=== PATIENT | female | born 1960 | race Caucasian/White ===

== ENCOUNTER 2018-02-26 17:25 | Emergency (ER) | payer MEDICAID ==
--- NOTE | 2018-02-26 18:09 | ED PDOC ---
Arrival/HPI - General Time Seen by Provider: 02/26/18 18:05 Historian: Patient - History of Present Illness Narrative History of Present Illness (Text): 02/26/18 18:05 57 y/o female, pmh including htn/hyperlipidemia/dm, nkda, takes baby dose aspirin daily, last tetanus doesn't remember, c/o fall with facial laceration x 3 hours. Pt. stated that she she slipped on the wet floor, landed on the rt. sided of the facial region, sustained laceration, no LOC, able to remember the whole event, no neck pain, no numbness or tingling, no rash, no night sweat, no palpitation, no other medical or psychological complaints. Past Medical History - Provider Review Nursing Documentation Reviewed: Yes - Tetanus Immunization Tetanus Immunization: Up to Date - Psychiatric Hx Depression: No Hx Emotional Abuse: No Hx Physical Abuse: No Hx Substance Use: No - Past Surgical History Past Surgical History: No Previous - Suicidal Assessment Feels Threatened In Home Enviroment: No Family/Social History - Physician Review Nursing Documentation Reviewed: Yes Family/Social History: Unknown Family HX Hx Alcohol Use: No Hx Substance Use: No Hx Substance Use Treatment: No Allergies/Home Meds Allergies/Adverse Reactions: Allergies No Known Allergies Allergy (Verified 02/26/18 18:14) Review of Systems - Review of Systems Constitutional: absent: Fatigue, Fevers Eyes: absent: Vision Changes ENT: absent: Hearing Changes Respiratory: absent: SOB, Cough Cardiovascular: absent: Chest Pain Gastrointestinal: absent: Abdominal Pain, Nausea, Vomiting Skin: Laceration. absent: Rash, Pruritis, Abscess Neurological: absent: Headache, Dizziness Psychiatric: absent: Anxiety, Depression, Suicidal Ideation Physical Exam Vital Signs Temp Pulse Resp BP Pulse Ox 02/26/18 18:30 98.3 F 88 17 161/78 H 99 - Systems Exam Head: Present: Atraumatic, Normocephalic, Laceration (Rt. lateral periorbital region visible approx. 1.5cm superificial to intermediate depth laceration, no oozing/discharge. ). No: Ecchymosis, Abrasion Pupils: Present: PERRL Extroacular Muscles: Present: EOMI Conjunctiva: Present: Normal Mouth: Present: Moist Mucous Membranes Pharnyx: No: ERYTHEMA, EXUDATE, TONSILS ENLARGED Nose (External): Present: Atraumatic. No: Abrasion, Contusion, Laceration Nose (Internal): Present: Normal Inspection, No Active Bleeding. No: Rhinorrhea , Septal Hematoma, Epistaxis Neck: Present: Normal Range of Motion, Trachea Midline. No: MIDLINE TENDERNESS , Paraspinal Tenderness, Lymphadenopathy Respiratory/Chest: Present: Clear to Auscultation, Good Air Exchange. No: Respiratory Distress, Accessory Muscle Use Cardiovascular: Present: Regular Rate and Rhythm, Normal S1, S2. No: Murmurs Abdomen: No: Tenderness, Distention, Peritoneal Signs, Rebound, Guarding Back: Present: Normal Inspection Upper Extremity: Present: Normal Inspection. No: Cyanosis, Edema Lower Extremity: Present: Normal Inspection. No: Edema Neurological: Present: GCS=15, Speech Normal, Motor Func Grossly Intact, Gait Normal, Memory Normal Skin: Present: Warm, Dry, Normal Color. No: Rashes Psychiatric: Present: Alert, Oriented x 3, Normal Insight, Normal Concentration Medical Decision Making ED Course and Treatment: 02/26/18 18:14 -CT head/facial -tdap -will suture 02/26/18 21:24 -CT head: No evidence of acute intracranial hemorrhage, extraxial fluid or midline shift. -CT maxillofacial: Dental metallic fillings/hardware creates artifact. No acute fractures identified. Mild right facial and periorbital soft tissue swelling. -Sensation intact, motor 5/5, wound irrigated with normal saline 1000cc, clean with Betadine, sterile procedure as usual, 1% lidocaine with 0.5 mL with local infiltration, 6-0 nylon suture made 3 sutures, hemostasis obtained, bacitracin apply, gauze dressing, sensation intact, motor 5/5, minimal blood loss, pt. tolerated the procedure well with no complication. Pain decreased and pt. feel much better. Total procedure 25 minutes -Discharge home with bacitracin ointment, education on to keep the dressing and wound clean and dry for 2 days then clean with soap and water twice daily, apply Neosporin or bacitracin twice daily, keep the wound open at night starting day 3-4 as you are sleeping in a clean environment and not working which allow the wound to have proper air exposure to avoid moisture which will delayed the wound healing, sutures need to be removed by day 5, avoid strenuous exercise or activity, follow up with your own primary care doctors and specialist within 2 days, return to ER for any concerning/worsening signs or symptoms. - RAD Interpretation Radiology Orders: 02/26/18 18:15 HEAD W/O CONTRAST [CT] Stat MAXILLOFACIAL W/O CONTRAST [CT] Stat CT Head: Brain: No evidence of acute intracranial hemorrhage, extraxial fluid or midline shift. No significant white matter disease. Ventricles: Unremarkable. No ventriculomegaly. Bones/joints: Unremarkable. No acute fracture. Soft tissues: Unremarkable. Sinuses: Unremarkable as visualized. No acute sinusitis. Mastoid air cells: Unremarkable as visualized. No mastoid effusion. IMPRESSION: No evidence of acute intracranial hemorrhage, extraxial fluid or midline shift. Thank you for allowing us to participate in the care of your patient. Dictated and Authenticated by: Oz Eid MD 02/26/2018 9:13 PM Eastern Time ( & [place]) --- CT Facial: Bones/joints: No acute fractures identified. Mild cervical spondylosis. Soft tissues: Mild right facial and periorbital soft tissue swelling. Orbits: Unremarkable. Sinuses: Unremarkable. No air-fluid levels. Dental: Dental metallic fillings/hardware creates artifact. IMPRESSION: 1. Dental metallic fillings/hardware creates artifact. 2. No acute fractures identified. 3. Mild right facial and periorbital soft tissue swelling. Thank you for allowing us to participate in the care of your patient. Dictated and Authenticated by: Oz Eid MD 02/26/2018 9:16 PM Eastern Time ( & [place]) Veterinary Radiologist: Radiologist - Medication Orders Current Medication Orders: Discontinued Medications Tetanus/Reduced Diphtheria/Acell Pertussis (Boostrix Vaccine Inj) 0.5 ml IM .ONCE ONE Stop: 02/26/18 18:16 Last Admin: 02/26/18 19:26 Dose: 0.5 ml [employer] [facility] Immunization Data Document 02/26/18 19:26 IT (Rec: 02/26/18 19:26 IT [id number]) Immunization Data Vaccine Information Sheet Given No Immunization Registry Document 02/26/18 19:26 IT (Rec: 02/26/18 19:26 IT [id number]) Immunization Registry Consent Date 02/26/18 - 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 Disposition/Present on Arrival - Present on Arrival Any Indicators Present on Arrival: No History of DVT/PE: No History of Uncontrolled Diabetes: No Urinary Catheter: No History of Decub. Ulcer: No History Surgical Site Infection Following: None - Disposition Have Diagnosis and Disposition been Completed?: Yes Diagnosis: Fall, Laceration, Contusion Disposition: HOME/ ROUTINE Disposition Time: 18:15 Patient Plan: Discharge Patient Problems: Current Active Problems Problem Status Onset Fall Acute Laceration Acute Condition: IMPROVED Additional Instructions: -Discharge home with bacitracin ointment, education on to keep the dressing and wound clean and dry for 2 days then clean with soap and water twice daily, apply Neosporin or bacitracin twice daily, keep the wound open at night starting day 3-4 as you are sleeping in a clean environment and not working which allow the wound to have proper air exposure to avoid moisture which will delayed the wound healing, sutures need to be removed by day 5, avoid strenuous exercise or activity, follow up with your own primary care doctors and specialist within 2 days, return to ER for any concerning/worsening signs or symptoms. Prescriptions: Bacitracin OINT 1 applic TP BID #30 g Referrals: Phong Chappell MD [Primary Care Provider] - Follow up with primary Forms: WORK NOTE
[2018-02-26] MEDS ORDERED: TDAP Vaccine 0.5 mL Syr IM ONE (18:15)
[2018-02-26 18:19] VITALS: BMI 29.2
[2018-02-26 18:30] VITALS: RESP 17
[2018-02-26 21:39] VITALS: BP 138/68; PULSE 82; TEMP 98.2; O2SAT 100
--- NOTE | 2018-02-27 09:01 | CT ---
PROCEDURE: CT HEAD WITHOUT CONTRAST. HISTORY: fall, rt. periorbital facial laceration COMPARISON: None available. TECHNIQUE: Axial computed tomography images were obtained through the head/brain without intravenous contrast. Radiation dose: Total exam DLP = 1005 mGy-cm. This CT exam was performed using one or more of the following dose reduction techniques: Automated exposure control, adjustment of the mA and/or kV according to patient size, and/or use of iterative reconstruction technique. FINDINGS: HEMORRHAGE: No intracranial hemorrhage. BRAIN: No mass effect or edema. No atrophy or chronic microvascular ischemic changes. VENTRICLES: Unremarkable. No hydrocephalus. CALVARIUM: Unremarkable. PARANASAL SINUSES: Unremarkable as visualized. No significant inflammatory changes. MASTOID AIR CELLS: Unremarkable as visualized. No inflammatory changes. OTHER FINDINGS: The report concurs with the preliminary [facility] report IMPRESSION: No acute findings
--- NOTE | 2018-02-27 09:09 | CT ---
PROCEDURE: CT MAXILLOFACIAL BONES WITHOUT CONTRAST HISTORY: fall, rt. periorbital facial laceration COMPARISON: None TECHNIQUE: Contiguous axial CT images of the maxillofacial bones were obtained. Coronal and sagittal reformats were generated. Radiation dose: Total exam DLP = 778 mGy-cm. This CT exam was performed using one or more of the following dose reduction techniques: Automated exposure control, adjustment of the mA and/or kV according to patient size, and/or use of iterative reconstruction technique. FINDINGS: NASAL BONES: Unremarkable. ORBITS: Unremarkable. PARANASAL SINUSES/ MASTOIDS: Clear. MAXILLA: Unremarkable. MANDIBLE/ TEMPOROMANDIBULAR JOINTS: Unremarkable. SKULL BASE: Unremarkable. TEMPORAL BONES: Middle ears and mastoid grossly unremarkable. OTHER FINDINGS: Disc degeneration at C4-5 The report concurs with the preliminary [facility] report IMPRESSION: Unremarkable non contrast enhanced CT of the maxillofacial bones.
== END 2018-02-26 21:40 | disposition home or self-care (01) ==
LOC: ED 17:25
DX: S01.81XA Laceration without foreign body of other part of head, initial encounter (principal); W01.0XXA Fall on same level from slipping, tripping and stumbling without subsequent striking against object, initial encounter; Y92.009 Unspecified place in unspecified non-institutional (private) residence as the place of occurrence of the external cause; Z23 Encounter for immunization

== ENCOUNTER 2018-07-18 18:00 | Emergency (ER) | payer MEDICAID ==
[2018-07-18 18:01] VITALS: BMI 29.2
[2018-07-18 18:26] VITALS: BP 150/104; PULSE 99; RESP 18; TEMP 97.7
[2018-07-18] MEDS ORDERED: DiphenhydrAMINE 50 mg/ml Inj IVP STA (18:28)
[2018-07-18] MEDS ORDERED: Sodium Chloride 0.9% 1,000 ML IV SCH (18:30)
--- NOTE | 2018-07-18 18:33 | ED PDOC ---
Arrival/HPI - General Historian: Patient <Kamron Cornell - Last Filed: 07/18/18 21:01> <Dona Gomez PA-C - Last Filed: 07/18/18 22:28> - General Chief Complaint: Headache Time Seen by Provider: 07/18/18 18:28 - History of Present Illness Narrative History of Present Illness (Text): 07/18/18 18:30 58 y/o female, pmh including htn/hld/dm/anemia/mild alzheimer, nkda, post menopausal, c/o headache x 5 hours. Pt. stated that she has been having all afternoon started 1pm this afternoon, associated with nausea and 1 episode of non-bilious/non-bloody vomiting, checked her bp and noted to be elevated and in the BP the BP is around 150/104, no chest pain or palpitation, no rash, no night sweat, no dizziness, no change in vision, no palpitation, no rash, no other medical or psychological complaints. (Kamron Cornell) Past Medical History - Provider Review Nursing Documentation Reviewed: Yes - Infectious Disease Hx of Infectious Diseases: None - Tetanus Immunization Tetanus Immunization: Up to Date - Cardiac Hx Cardiac Disorders: Yes Hx Hypertension: Yes - Pulmonary Hx Respiratory Disorders: No - Neurological Hx Neurological Disorder: Yes Hx Dementia: Yes Other/Comment: neuropathy - HEENT Hx HEENT Disorder: No - Endocrine/Metabolic Hx Endocrine Disorders: Yes Hx Diabetes Mellitus Type 2: Yes - Hematological/Oncological Hx Blood Disorders: No - Integumentary Hx Dermatological Disorder: No - Musculoskeletal/Rheumatological Hx Musculoskeletal Disorders: No - Gastrointestinal Hx Gastrointestinal Disorders: Yes Hx Gastroesophageal Reflux: Yes - Genitourinary/Gynecological Hx Genitourinary Disorders: No - Psychiatric Hx Depression: No Hx Emotional Abuse: No Hx Physical Abuse: No Hx Substance Use: No - Past Surgical History Past Surgical History: No Previous - Suicidal Assessment Feels Threatened In Home Enviroment: No <Kamron Cornell - Last Filed: 07/18/18 21:01> Family/Social History - Physician Review Nursing Documentation Reviewed: Yes Family/Social History: Unknown Family HX Smoking Status: Never Smoked Hx Alcohol Use: No Hx Substance Use: No Hx Substance Use Treatment: No <Kamron Cornell - Last Filed: 07/18/18 21:01> Allergies/Home Meds <Kamron Cornell - Last Filed: 07/18/18 21:01> <Dona Gomez PA-C - Last Filed: 07/18/18 22:28> Allergies/Adverse Reactions: Allergies No Known Allergies Allergy (Verified 07/18/18 18:30) Review of Systems - Review of Systems Constitutional: absent: Fatigue, Fevers Eyes: absent: Vision Changes ENT: absent: Hearing Changes Respiratory: absent: SOB, Cough Cardiovascular: absent: Chest Pain Gastrointestinal: Nausea, Vomiting. absent: Abdominal Pain Genitourinary Female: absent: Dysuria Musculoskeletal: absent: Arthralgias Skin: absent: Rash, Pruritis Neurological: Headache. absent: Dizziness, Focal Weakness Psychiatric: absent: Anxiety, Depression, Suicidal Ideation <Kamron Cornell - Last Filed: 07/18/18 21:01> Physical Exam Vital Signs Reviewed: Yes Temperature: Afebrile Blood Pressure: Hypertensive Pulse: Regular Respiratory Rate: Normal Appearance: Positive for: Well-Appearing, Non-Toxic Pain Distress: Moderate Mental Status: Positive for: Alert and Oriented X 3 Finger Stick Blood Glucose: 201 - Systems Exam Head: Present: Atraumatic, Normocephalic, Other (no temporal artery tenderness). No: Tenderness, Contusion, Swelling, Ecchymosis, Abrasion, Laceration Pupils: Present: PERRL Extroacular Muscles: Present: EOMI Conjunctiva: Present: Normal Ears: Present: NORMAL TM, Normal Canal. No: Erythema Mouth: Present: Moist Mucous Membranes, Normal Lips, Normal Tounge, Normal Teeth. No: Drooling, Trismus Pharnyx: Present: Normal. No: ERYTHEMA, EXUDATE, TONSILS ENLARGED Nose (External): Present: Atraumatic. No: Abrasion, Contusion, Laceration Nose (Internal): Present: Normal Inspection, No Active Bleeding. No: Rhi norrhea, Septal Hematoma, Epistaxis Neck: Present: Normal Range of Motion, Trachea Midline. No: Meningeal Signs, MIDLINE TENDERNESS, Paraspinal Tenderness, Lymphadenopathy Respiratory/Chest: Present: Clear to Auscultation, Good Air Exchange. No: Re spiratory Distress, Accessory Muscle Use Cardiovascular: Present: Regular Rate and Rhythm, Normal S1, S2. No: Murmurs Abdomen: No: Tenderness, Distention, Peritoneal Signs, Rebound, Guarding Back: Present: Normal Inspection. No: CVA Tenderness, Midline Tenderness, Paraspinal Tenderness, Pain with Leg Raise, Decubitus Ulcer Upper Extremity: Present: Normal Inspection. No: Cyanosis, Edema Lower Extremity: Present: Normal Inspection, Normal ROM, Neurovascularly Intact, Capillary Refill < 2 s. No: Edema, Tenderness, Swelling, Deformity Neurological: Present: GCS=15, CN II-XII Intact, Speech Normal, Motor Func Grossly Intact, Gait Normal, Memory Normal, Other (no drift, NIHSS is zero) Skin: Present: Warm, Dry, Normal Color. No: Rashes Psychiatric: Present: Alert, Oriented x 3, Normal Insight, Normal Concentration <Kamron Cornell - Last Filed: 07/18/18 21:01> Vital Signs Temp Pulse Resp BP Pulse Ox 07/18/18 18:22 97.7 F 99 H 18 150/104 H 100 Medical Decision Making - RAD Interpretation Fashion Intern: Radiologist <Kamron Cornell - Last Filed: 07/18/18 21:01> <Dona Gomez PA-C - Last Filed: 07/18/18 22:28> ED Course and Treatment: 07/18/18 18:33 -Labs/ua -CT head -IVF/reglan/benadryl -Observe and reassess 07/18/18 20:57 -CT head: Normal head/brain CT. -Chest xray: no active disease -Labs are non significant except hgb 11.3 (no abdominal pain, chronic anemia), BUN 25 (pt. refused IVF, tolerating PO) -Pt. refused IV as she is not happy with the IV attempts, there is no anion gap, clinically not appear to be DKA. -Case endorsed to the incoming PRIMITIVO Gomez, discussed about the labs, she will follow up on the pending labs/radiology test including UA and dispo the patient. (Kamron Cornell) 07/18/18 22:24 UA results wnl. UA results d/w the patient. VS : BP 146/67 P 98 O2sat 100%RA. On reevaluation, patient reports improvement of symptoms, denies any headache, dizziness, CP, SOB or nausea. On exam, patient remains awake alert and oriented 3 in no acute distress. Neck is supple, repeat neuro exam shows no focal findings. Advised to follow up with primary care physician in 1-2 days without fail. Return to the emergency room at any time for any new or worsening symptoms. Patient states she fully agrees with and understands discharge instructions. States that she agrees with the plan and disposition. Verbalized and repeated discharge instructions and plan. I have given the patient opportunity to ask any additional questions. (Jason LEIVNE,Dona Coombs) - Lab Interpretations Lab Results: 07/18/18 19:01 07/18/18 19:01 Lab Results 07/18/18 20:50: Urine Color Straw, Urine Appearance Clear, Urine pH 7.0, Ur Spe cific [place] 1.010, Urine Protein Negative, Urine Glucose (UA) >=1000, Urine Ketones Trace H, Urine Blood Negative, Urine Nitrate Negative, Urine Bilirubin Negative, Urine Urobilinogen 0.2, Ur Leukocyte Esterase Negative 07/18/18 19:01: Sodium 141, Potassium 4.1, Chloride 102, Carbon Dioxide 25, Anion Gap 18, BUN 25 H, Creatinine 0.9, Est GFR ( Amer) > 60, Est GFR (Non-Af Amer) > 60, Random Glucose 211 H, Calcium 9.8, Magnesium 2.1, Total Bilirubin 0.2, AST 28, ALT 15, Alkaline Phosphatase 86, Total Protein 8.3, Albumin 4.4, Globulin 3.8, Albumin/Globulin Ratio 1.2 07/18/18 19:01: WBC 8.4, RBC 4.45, Hgb 11.3 L, Hct 35.1 L, MCV 78.9 L, MCH 25.4, MCHC 32.2, RDW 14.1, Plt Count 269, MPV 10.4, Gran % 67.7, Lymph % (Auto) 22.6, [place] % (Auto) 8.2 H, Eos % (Auto) 1.4 L, Baso % (Auto) 0.1, Gran # 5.69, Lymph # (Auto) 1.9, [place] # (Auto) 0.7 H, Eos # (Auto) 0.1, Baso # (Auto) 0.01 - RAD Interpretation Radiology Orders: 07/18/18 18:28 HEAD W/O CONTRAST [CT] Stat CHEST PORTABLE [RAD] Stat CT Head: FINDINGS: Brain: Unremarkable. No hemorrhage. No significant white matter disease. No edema. Normal holliday white matter interfaces are present. Ventricles: Unremarkable. No ventriculomegaly. Bones/joints: Unremarkable. No acute fracture. Soft tissues: Unremarkable. Sinuses: Unremarkable as visualized. No acute sinusitis. Mastoid air cells: Unremarkable as visualized. No mastoid effusion. IMPRESSION: Normal head/brain CT. Thank you for allowing us to participate in the care of your patient. Dictated and Authenticated by: Jerome Glaser MD 07/18/2018 8:58 PM Eastern Time ([place] & [place]) Chest xray: (Kamron Cornell) - Medication Orders Current Medication Orders: Discontinued Medications Acetaminophen (Tylenol 325mg Tab) 650 mg PO STAT STA Stop: 07/18/18 20:58 Last Admin: 07/18/18 21:05 Dose: 650 mg MAR Pain/Vitals Document 07/18/18 21:05 SS (Rec: 07/18/18 21:05 [id number]) Location Pain Location Body Presentation Team Member Diphenhydramine HCl (Benadryl) 50 mg IM STAT STA Stop: 07/18/18 20:58 Last Admin: 07/18/18 21:01 Dose: 50 mg IM Administration Charges Document 07/18/18 21:01 SS (Rec: 07/18/18 21:01 [id number]) Charges for Administration # of IM Administrations 1 Metoclopramide HCl (Reglan) 10 mg IM STAT STA Stop: 07/18/18 20:57 Last Admin: 07/18/18 21:01 Dose: 10 mg IM Administration Charges Document 07/18/18 21:01 SS (Rec: 07/18/18 21:01 [id number]) Charges for Administration # of IM Administrations 1 - 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 <Kamron Cornell - Last Filed: 07/18/18 21:01> - PA / HOUSE SHORER / Resident Statement MD/DO has reviewed & agrees with the documentation as recorded. <Dona Gomez PA-C - Last Filed: 07/18/18 22:28> Disposition/Present on Arrival - Present on Arrival Any Indicators Present on Arrival: No History of DVT/PE: No History of Uncontrolled Diabetes: No Urinary Catheter: No History of Decub. Ulcer: No History Surgical Site Infection Following: None - Disposition Have Diagnosis and Disposition been Completed?: Yes Disposition Time: 21:00 <Kamron Cornell - Last Filed: 07/18/18 21:01> - Disposition Patient Plan: Discharge <Dona Gomez PA-C - Last Filed: 07/18/18 22:28> - Disposition Diagnosis: Headache Disposition: HOME/ ROUTINE Patient Problems: Current Active Problems Problem Status Onset Headache Acute Condition: STABLE Discharge Instructions (ExitCare): Headache, Adult Additional Instructions: Thank you for letting us take care of you today. You were treated for headache. The emergency medical care you received today was directed at your acute symptoms. Return to the Emergency Department if your symptoms worsen, do not improve, or if you have any other problems. Please contact your doctor in 2 days for re-evaluation and follow up. Bring any paperwork you were given at discharge with you along with any medications you are taking to your follow up visit. Our treatment cannot replace ongoing medical care by a primary care provider (PCP) outside of the emergency department. Thank you for allowing the [facility] team to be part of your care today. Referrals: Phong Chappell MD [Primary Care Provider] - Follow up with primary Forms: [facility]), WORK NOTE
[2018-07-18 19:06] LABS: BASO # 0.01 K/mm3 (0.0-2.0); BASO % 0.1 % (0.0-3.0); EOS # 0.1 (0.0-0.7); EOS % 1.4 % (1.5-5.0); GRAN # 5.69 (1.4-6.5); GRAN % 67.7 % (50.0-68.0); HEMOGLOBIN 11.3 g/dL (12.0-16.0); LYMPH # 1.9 (1.2-3.4); LYMPH % 22.6 % (22.0-35.0); MEAN CELL VOLUME 78.9 fl (80.0-105.0); MEAN CORPUSCULAR HEMOGLOBIN 25.4 pg (25.0-35.0); MEAN CORPUSCULAR HGB CONC 32.2 g/dl (31.0-37.0); MEAN PLATELET VOLUME 10.4 fl (7.0-11.0); MONO # 0.7 (0.1-0.6); MONO % 8.2 % (1.0-6.0); RBC 4.45 10^6/uL (3.5-6.1); RED CELL DISTRIBUTION WIDTH 14.1 % (11.5-14.5); WHITE BLOOD COUNT 8.4 10^3/ul (4.5-11.0)
[2018-07-18 19:28] LABS: ALB/GLOB RATIO 1.2 (1.1-1.8); ALBUMIN 4.4 g/dL (3.0-4.8); ALT/SGPT 15 U/L (7-56); AST/SGOT 28 U/L (14-36); BLOOD UREA NITROGEN 25 mg/dL (7-21); CALCIUM 9.8 mg/dL (8.4-10.5); GFR NON-AFRICAN AMERICAN > 60
[2018-07-18] MEDS ORDERED: DiphenhydrAMINE 50 mg/ml Inj IM STA (20:57)
[2018-07-18 21:23] LABS: URINE APPEARANCE CLEAR (CLEAR); URINE BILIRUBIN NEGATIVE (NEGATIVE); URINE BLOOD NEGATIVE (NEGATIVE); URINE COLOR STRAW (YELLOW); URINE GLUCOSE (UA) >=1000 mg/dL (NEGATIVE); URINE LEUKOCYTE ESTERASE NEGATIVE Leu/uL (NEGATIVE); URINE UROBILINOGEN 0.2 E.U./dL (<1 E.U./dL)
[2018-07-18 21:24] LABS: URINE PROTEIN NEGATIVE mg/dL (<30 mg/dL)
[2018-07-18 23:19] VITALS: O2SAT 99
--- NOTE | 2018-07-19 07:56 | RAD ---
Date of service: 07/18/2018 HISTORY: medical clearance COMPARISON: 04/15/2018 FINDINGS: LUNGS: No active pulmonary disease. PLEURA: No significant pleural effusion identified, no pneumothorax apparent. CARDIOVASCULAR: No radiographic findings to suggest acute or significant cardiovascular disease. OSSEOUS STRUCTURES: No significant abnormalities. VISUALIZED UPPER ABDOMEN: Normal. OTHER FINDINGS: None. IMPRESSION: No active disease. No significant interval change compared to the prior examination(s). Concordant results with the preliminary interpretation rendered by the emergency department physician procedure.
--- NOTE | 2018-07-19 08:03 | CT ---
Date of service: 07/18/2018 PROCEDURE: CT HEAD WITHOUT CONTRAST. HISTORY: headache COMPARISON: 02/26/2018 TECHNIQUE: Axial computed tomography images were obtained through the head/brain without intravenous contrast. Supplemental Coronal and Sagittal projectections created and reviewed. Radiation dose: Total exam DLP = 576.32 mGy-cm. This CT exam was performed using one or more of the following dose reduction techniques: Automated exposure control, adjustment of the mA and/or kV according to patient size, and/or use of iterative reconstruction technique. FINDINGS: HEMORRHAGE: No intracranial hemorrhage. BRAIN: No mass effect or edema. No atrophy or chronic microvascular ischemic changes. VENTRICLES: Unremarkable. No hydrocephalus. CALVARIUM: Unremarkable. PARANASAL SINUSES: Unremarkable as visualized. No significant inflammatory changes. MASTOID AIR CELLS: Unremarkable as visualized. No inflammatory changes. OTHER FINDINGS: None. IMPRESSION: No acute intracranial abnormalities. No significant findings to account for the clinical presentation. No significant interval change compared to the prior examination(s). Concordant results (preliminary interpretation) provided by [employer]. Procedure Completed: 20:03 Preliminary ([facility]) Report: Dictated and Authenticated: 20:58 Final Interpretation: 08:01. July 19, 2018.
--- NOTE | 2018-07-19 19:55 | CARD ---
APPROVED REPORT Date of service: 07/18/2018 EKG Measurement Heart [id number] <Conclusion> Normal sinus rhythm Normal ECG
== END 2018-07-18 23:18 | disposition home or self-care (01) ==
LOC: ED 18:00
DX: R51 Headache (principal); E11.9 Type 2 diabetes mellitus without complications; E78.5 Hyperlipidemia, unspecified; I10 Essential (primary) hypertension; G30.9 Alzheimer's disease, unspecified
CPT/HCPCS: 70450; 71045; 80053; 81003; 83735; 85025; 93005; 96372; 99284; J1200; J2765

== ENCOUNTER 2018-11-04 17:39 | Inpatient (IN) | payer MEDICAID ==
[2018-11-04 18:23] VITALS: BMI 28.2
[2018-11-04] MEDS ORDERED: Sodium Chloride 0.9% 1,000 ML IV STA (19:00)
--- NOTE | 2018-11-04 19:04 | ED PDOC ---
Arrival/HPI - General Chief Complaint: Abdominal Pain Time Seen by Provider: 11/04/18 18:30 Historian: Patient - History of Present Illness Narrative History of Present Illness (Text): 11/04/18 19:01 58 year old female, with past medical history of hypertension and diabetes, presents to emergency department complaining of abdominal pain for the past three days. Patient reports associated nausea and vomiting. Patient states she has been unable to excrete properly due to the abdominal pain. Patient denies any fevers, headache, dizziness, chest pain, shortness of breath, cough, diarrhea, back pain, neck pain, or any other complaints. Past Medical History - Provider Review Nursing Documentation Reviewed: Yes - Infectious Disease Hx of Infectious Diseases: None - Tetanus Immunization Tetanus Immunization: Up to Date - Cardiac Hx Cardiac Disorders: Yes Hx Hypertension: Yes - Pulmonary Hx Respiratory Disorders: No - Neurological Hx Neurological Disorder: Yes Hx Dementia: Yes (episodes) Other/Comment: neuropathy - HEENT Hx HEENT Disorder: No - Renal Hx Renal Disorder: No - Endocrine/Metabolic Hx Endocrine Disorders: Yes Hx Diabetes Mellitus Type 2: Yes - Hematological/Oncological Hx Blood Disorders: No - Integumentary Hx Dermatological Disorder: No - Musculoskeletal/Rheumatological Hx Musculoskeletal Disorders: No - Gastrointestinal Hx Gastrointestinal Disorders: Yes Hx Gastroesophageal Reflux: Yes - Genitourinary/Gynecological Hx Genitourinary Disorders: No - Psychiatric Hx Psychophysiologic Disorder: No Hx Substance Use: No - Past Surgical History Past Surgical History: No Previous - Anesthesia Hx Anesthesia: No Hx Anesthesia Reactions: No Hx Malignant Hyperthermia: No - Suicidal Assessment Feels Threatened In Home Enviroment: No Family/Social History - Physician Review Nursing Documentation Reviewed: Yes Family/Social History: Unknown Family HX Smoking Status: Never Smoked Hx Alcohol Use: No Hx Substance Use: No Hx Substance Use Treatment: No Allergies/Home Meds Allergies/Adverse Reactions: Allergies No Known Allergies Allergy (Verified 07/18/18 18:30) Review of Systems - Physician Review All systems were reviewed & negative as marked: Yes - Review of Systems Constitutional: absent: Fevers Respiratory: absent: SOB Physical Exam - Physical Exam Narrative Physical Exam (Text): 11/04/18 19:05 Constitutional: No acute distress. Head: Normocephalic. Atraumatic. Eyes: PERRL. ENT: Moist mucous membranes. Neck: Supple. Cardiovascular: Regular rate. Chest: No tenderness. Respiratory: Clear to auscultation bilaterally. GI: abdominal distention Back: No CVA tenderness. Musculoskeletal: No tenderness or swelling of extremities. Skin: No rash. Neurologic: Alert, no focal deficit. Vital Signs Reviewed: Yes Vital Signs Temp Pulse Resp BP Pulse Ox 11/04/18 18:22 98.2 F 79 18 150/87 99 Temperature: Afebrile Blood Pressure: Normal Pulse: Regular Respiratory Rate: Normal Appearance: Positive for: Well-Appearing, Non-Toxic Medical Decision Making ED Course and Treatment: 11/04/18 19:06 Impression: 58 year old female presents to emergency department complaining of abdominal pain for the past 3 days. Plan: -- Labs -- Urinalysis -- IV Fluids -- Zofran -- CT Abdomen & Pelvis -- Reassess and disposition Prior Visits: Notes and results from previous visits were reviewed. Progress Notes: 11/04/18 19:34 EKG: Ordered, reviewed, and independently interpreted the EKG. Rate : 83 BPM Rhythm : NSR Interpretation : No ST/T-wave changes Signed out to Emergency department night team pending CT abdomen and disposition. - RAD Interpretation Radiology Orders: 11/04/18 19:00 ABD & PELVIS IV CONTRAST ONLY [CT] Stat - Medication Orders Current Medication Orders: Ondansetron HCl (Zofran Inj) 8 mg IVP STAT STA Stop: 11/04/18 19:01 - Scribe Statement The provider has reviewed the documentation as recorded by the Scribe Jocelyn Martinez All medical record entries made by the Scribe were at my direction and personally dictated by me. I have reviewed the chart and agree that the record accurately reflects my personal performance of the history, physical exam, medical decision making, and the department course for this patient. I have also personally directed, reviewed, and agree with the discharge instructions and disposition. Disposition/Present on Arrival - Present on Arrival History of DVT/PE: No History of Uncontrolled Diabetes: No Urinary Catheter: No History of Decub. Ulcer: No History Surgical Site Infection Following: None - Disposition Forms: [employer] (Luxembourgish)
[2018-11-04 19:23] LABS: ALB/GLOB RATIO 1.1 (1.1-1.8); ALBUMIN 5.2 g/dL (3.0-4.8); ALT/SGPT 30 U/L (7-56); AST/SGOT 24 U/L (14-36); BLOOD UREA NITROGEN 21 mg/dL (7-21); CALCIUM 10.8 mg/dL (8.4-10.5); GFR NON-AFRICAN AMERICAN > 60; LIPASE 253 U/L (23-300)
[2018-11-04 19:33] LABS: HEMOGLOBIN 12.9 g/dL (12.0-16.0); MEAN CORPUSCULAR HEMOGLOBIN 26.1 pg (25.0-35.0); MEAN CORPUSCULAR HGB CONC 32.7 g/dl (31.0-37.0); RBC 4.94 10^6/uL (3.5-6.1); WHITE BLOOD COUNT 8.4 10^3/uL (4.5-11.0)
[2018-11-04 19:34] LABS: EOS # 0.1 (0.0-0.7); EOS % 1.1 % (1.5-5.0); GRAN # 4.56 (1.4-6.5); GRAN % 54.4 % (50.0-68.0); LYMPH # 3.3 (1.2-3.4); LYMPH % 39.1 % (22.0-35.0); MEAN PLATELET VOLUME 10.4 fl (7.0-11.0); MONO # 0.5 (0.1-0.6); MONO % 5.4 % (1.0-6.0); RED CELL DISTRIBUTION WIDTH 13.4 % (11.5-14.5)
[2018-11-04] MEDS ORDERED: Iohexol 350 MG/100 ML VIAL ONE (19:59)
--- NOTE | 2018-11-04 21:07 | ED PDOC ---
Physical Exam - Physical Exam Narrative Physical Exam (Text): Gen: VS reviewed, alert, well developed, well nourished, nontoxic, mild distress Neck: no JVD, supple, no adenopathy CV: regular rate, regular rhythm, no rubs,no murmur, S1, S2 Pulm: no distress, clear to auscultation, no wheeze, no rhonchi, breath sounds equal, no rales Abd: soft, nontender, no guarding, no rebound, no rigidity Ext: no edema Skin: good color, no rash, no cyanosis Psych: responds appropriately to questions, normal affect Neuro: oriented x3, CN2-12 intact grossly, motor intact, sensation intact Vital Signs Temp Pulse Resp BP Pulse Ox 11/04/18 18:22 98.2 F 79 18 150/87 99 Medical Decision Making ED Course and Treatment: 11/04/18 22:52 received sign out from dr. zhu, patient presents with concern for bowel obstruction, pending CT 11/04/18 22:[address] callahan, to telemetry, consults to dr. ram, myrtle, and emperatriz. patient remained stable throughout emergency department course. On my bedside eval patient does not have a acute cardiopulmonary symptoms. I will defer diuresis at this time as the patient does not have a clinical fluid overload state and it may further complicate impending excessive fluid loses with the enteritis seen on CT. - Lab Interpretations Lab Results: Total Bilirubin 0.3 mg/dL (0.2-1.3) 11/04/18 19:00 AST 24 U/L (14-36) 11/04/18 19:00 ALT 30 U/L (7-56) 11/04/18 19:00 Alkaline Phosphatase 80 U/L (38-126) 11/04/18 19:00 Total Protein 9.7 g/dL (5.8-8.3) H 11/04/18 19:00 Albumin 5.2 g/dL (3.0-4.8) H 11/04/18 19:00 Globulin 4.6 gm/dL 11/04/18 19:00 Albumin/Globulin Ratio 1.1 (1.1-1.8) 11/04/18 19:00 Lipase 253 U/L (23-300) 11/04/18 19:00 - RAD Interpretation Narrative RAD Interpretations (Text): 11/04/2018 21:28 Abd/Pelvis CT IMPRESSION: 1. Fatty liver. 2. The pancreas is partially atrophic and fatty replaced. 3. Severe enteritis. Follow up with upper endoscopy is recommended. 4. The uterus contains calcifications consistent with small calcified fibroids. 5. The heart is moderately enlarged. 6. Increasing bilateral interstitial lung markings present suggesting early pulmonary fibrosis. 7. Mild pulmonary venous congestive changes. 8. Very small fat containing umbilical hernia present Dictator: Ivan Enciso MD Radiology Orders: 11/04/18 19:00 ABD & PELVIS IV CONTRAST ONLY [CT] Stat - Medication Orders Current Medication Orders: Discontinued Medications Sodium Chloride (Sodium Chloride 0.9%) 1,000 mls @ 999 mls/hr IV .Q1H1M STA Stop: 11/04/18 20:00 Last Admin: 11/04/18 19:05 Dose: 999 mls/hr eMAR Start Stop Document 11/04/18 19:05 LA (Rec: 11/04/18 19:05 LA [id number]) Intravenous Solution Start Date 11/04/18 Start Time 19:05 End Date 11/04/18 End time 20:06 Total Infusion Time 61 Ondansetron HCl (Zofran Inj) 8 mg IVP STAT STA Stop: 11/04/18 19:01 Last Admin: 11/04/18 19:09 Dose: 8 mg IVP Administration Document 11/04/18 19:09 LA (Rec: 11/04/18 19:09 LA [id number]) Charges for Administration # of IVP Administrations 1 Disposition/Present on Arrival - Present on Arrival Any Indicators Present on Arrival: No History of DVT/PE: No History of Uncontrolled Diabetes: No Urinary Catheter: No History of Decub. Ulcer: No History Surgical Site Infection Following: None - Disposition Have Diagnosis and Disposition been Completed?: Yes Diagnosis: Enteritis, Pulmonary edema Disposition: HOSPITALIZED Disposition Time: 22:47 Patient Plan: Admission Patient Problems: Current Active Problems Problem Status Onset Enteritis Acute Pulmonary edema Acute Condition: STABLE Forms: [employer] (Albanian)
[2018-11-04 21:38] LABS: URINE BILIRUBIN NEGATIVE (NEGATIVE); URINE BLOOD NEGATIVE (NEGATIVE); URINE GLUCOSE (UA) 500 mg/dL (NEGATIVE); URINE LEUKOCYTE ESTERASE TRACE Leu/uL (NEGATIVE); URINE PROTEIN NEGATIVE mg/dL (<30 mg/dL); URINE UROBILINOGEN 0.2 E.U./dL (<1 E.U./dL)
[2018-11-04 21:41] LABS: URINE APPEARANCE CLEAR (CLEAR); URINE COLOR YELLOW (YELLOW)
[2018-11-04 22:31] LABS: URINE BACTERIA OCC /hpf; URINE EPITHELIAL CELLS 0 - 2 /hpf (0-5); URINE RBC 0 - 2 /hpf (0-2)
--- NOTE | 2018-11-05 08:02 | CP.PCM.CON ---
History of Present Illness - History of Present Illness History of Present Illness: Awake, alert , denies chest pain,denies shortness of breath Reason for consultation:Cardiac evaluation for questionable congestive heart failure, history of hypertension. Brief history of present illness:A 58 year old female who came in to the ER due to nausea and vomiting and abdominal pain for the past three days. Denies shortness of breath or chest pain. History of hypertension and diabetes, hypercholesterolemia. Seen and examined by me and Dr. Cristobal Review of Systems - Review of Systems All systems: reviewed and no additional remarkable complaints except Review of Systems: as per HPI Past Patient History - Infectious Disease Hx of Infectious Diseases: None - Tetanus Immunizations Tetanus Immunization: Up to Date - Past Social History Smoking Status: Never Smoked - CARDIAC Hx Cardiac Disorders: Yes Hx Angina: No Hx Cardia Arrhythmia: No Hx Circulatory Problems: No Hx Congestive Heart Failure: No Hx Heart Murmur: No Hx Heart Transplant: No Hx Hypercholesterolemia: Yes Hx Hypertension: Yes Hx Internal Defibrillator: No Hx Mitral Valve Prolapse: No Hx Pacemaker: No Hx Peripheral Edema: No Hx Peripheral Vascular Disease: No - PULMONARY Hx Respiratory Disorders: No Hx Asthma: No Hx Bronchitis: No Hx Chronic Obstructive Pulmonary Disease (COPD): No Hx Emphysema: No Hx Pneumonia: No Hx Respiratory Aspiration: No Hx Respiratory Tract Infection: No Hx Sleep Apnea: No Hx Tuberculosis: No - NEUROLOGICAL Hx Neurological Disorder: No Hx Alzheimer's Disease: No HX Cerebrovascular Accident: No Hx Dementia: No Hx Dizziness: No Hx Meningitis: No Hx Migraine: No Hx Parkinson's Disease: No Hx Seizures: No Hx Transient Ischemic Attacks (TIA): No - HEENT Hx HEENT Problems: No Hx Blind: No Hx Cataracts: No Hx Deafness: No Hx Difficulty Chewing: No Hx Epistaxis: No Hx Glaucoma: No Hx Macular Degeneration: No - RENAL Hx Chronic Kidney Disease: No Hx Dialysis: No Hx Kidney Stones: No Hx Neurogenic Bladder: No Hx Pyelonephritis: No Hx Renal (Kidney) Cancer: No Hx Renal Failure: No - ENDOCRINE/METABOLIC Hx Endocrine Disorders: Yes Hx Adrenal Cancer: No Hx Diabetes Insipidus: No Hx Diabetes Mellitus Type 1: No Hx Diabetes Mellitus Type 2: Yes Hx Hyperthyroidism: No Hx Hypothyroidism: No Hx Systemic Lupus Erythematosus: No - HEMATOLOGICAL/ONCOLOGICAL Hx Blood Disorders: No Hx AIDS: No Hx Anemia: No Hx Cancer: No Hx Chemotherapy: No Hx Cirrhosis: No Hx Hemophilia: No Hx Hepatitis A: No Hx Hepatitis B: No Hx Hepatitis C: No Hx Human Immunodeficiency Virus (HIV): No Hx Metastesis: No Hx Shingles: No Hx Sickle Cell Disease: No Hx Unexplained Bleeding: No - INTEGUMENTARY Hx Dermatological Problems: No Hx Basil Cell: No Hx Eczema: No Hx Melanoma: No Hx Psoriasis: No Hx Squamous Cell: No - MUSCULOSKELETAL/RHEUMATOLOGICAL Hx Musculoskeletal Disorders: No Hx Arthritis: No Hx Back Pain: No Hx Degenerative Joint Disease: No Hx Falls: No Hx Fractures: No Hx Gout: No Hx Herniated Disk: No Hx Myasthenia Gravis: No Hx Osteoarthritis: No Hx Osteomyelitis: No Hx Osteoporosis: No Hx Rhabdomyolysis: No Hx Spinal Stenosis: No Hx Unsteady Gait: No - GASTROINTESTINAL Hx Gastrointestinal Disorders: No Hx Colostomy: No Hx Crohn's Disease: No Hx Diverticulitis: No Hx Gall Bladder Disease: No Hx Gastroesophageal Reflux: No Hx Ileostomy: No Hx Liver Failure: No Hx Pancreatitis: No HX Swallowing Problems: No Hx Ulcer: No - GENITOURINARY/GYNECOLOGICAL Hx Genitourinary Disorders: No Hx Hematuria: No Hx Incontinence: No Hx Sexually Transmitted Disorders: No Hx Urinary Tract Infection: No - PSYCHIATRIC Hx Psychophysiologic Disorder: No Hx Anxiety: No Hx Bipolar Disorder: No Hx Depression: No Hx Emotional Abuse: No Hx Hallucinations: No Hx Panic Symptoms: No Hx Paranoia: No Hx Post Traumatic Stress Disorder: No Hx Psychosis: No Hx Physical Abuse: No Hx Schizophrenia: No Hx Sexual Abuse: No Hx Substance Use: No - SURGICAL HISTORY Hx Surgeries: No Hx Amputation: No Hx Appendectomy: No Hx Cardiac Catheterization: No Hx Cholecystectomy: No Hx Coronary Stent: No Hx Gastric Bypass Surgery: No Hx Hysterectomy: No Hx Joint Replacement: No Hx Kidney Transplant: No Hx Liver Transplant: No Hx Mastectomy: No Hx Musculoskeletal Surgery: No Hx Open Heart Surgery: No Hx Orthopedic Surgery: No Hx Splenectomy: No Hx Valve Replacement: No - ANESTHESIA Hx Anesthesia: No Hx Anesthesia Reactions: No Hx Malignant Hyperthermia: No Meds Allergies/Adverse Reactions: Allergies Allergy/AdvReac Type Severity Reaction Status Date / Time No Known Allergies Allergy Verified 07/18/18 18:30 Physical Exam - Constitutional Appears: Non-toxic, No Acute Distress - Head Exam Head Exam: NORMAL INSPECTION, NORMOCEPHALIC - Eye Exam Eye Exam: Normal appearance Pupil Exam: NORMAL ACCOMODATION - ENT Exam ENT Exam: Mucous Membranes Moist, Normal Exam - Neck Exam Neck exam: Positive for: Normal Inspection - Respiratory Exam Respiratory Exam: Clear to Auscultation Bilateral, NORMAL BREATHING PATTERN - Cardiovascular Exam Cardiovascular Exam: REGULAR RHYTHM, +S1, +S2 Additional comments: Telemetry NSR 70's - GI/Abdominal Exam GI & Abdominal Exam: Normal Bowel Sounds, Soft Additional comments: tenderness to touch all quadrants no nausea, no vomiting - Extremities Exam Extremities exam: Positive for: full ROM, normal capillary refill - Neurological Exam Neurological exam: Alert, Oriented x3 - Psychiatric Exam Psychiatric exam: Normal Affect, Normal Mood - Skin Skin Exam: Dry, Normal Color, Warm Results - Vital Signs Recent Vital Signs: Last Vital Signs Temp 98.1 F 11/05/18 06:00 Pulse 86 11/05/18 06:00 Resp 18 11/05/18 06:00 BP 126/72 11/05/18 06:00 Pulse Ox 97 11/05/18 06:00 - Labs Result Diagrams: 11/04/18 19:00 11/04/18 19:00 Labs: Laboratory Results - last 24 hr 11/04/18 11/04/18 11/04/18 19:00 19:00 21:19 WBC 8.4 RBC 4.94 Hgb 12.9 Hct 39.5 MCV 80.0 MCH 26.1 MCHC 32.7 RDW 13.4 Plt Count 383 MPV 10.4 Gran % 54.4 Lymph % (Auto) 39.1 H [place] % (Auto) 5.4 Eos % (Auto) 1.1 L Baso % (Auto) 0.0 Gran # 4.56 Lymph # (Auto) 3.3 [place] # (Auto) 0.5 Eos # (Auto) 0.1 Baso # (Auto) 0.00 Sodium 139 Potassium 4.1 Chloride 102 Carbon Dioxide 24 Anion Gap 17 BUN 21 Creatinine 0.9 Est GFR ( Amer) > 60 Est GFR (Non-Af Amer) > 60 Random Glucose 109 Calcium 10.8 H Total Bilirubin 0.3 AST 24 ALT 30 Alkaline Phosphatase 80 Total Protein 9.7 H Albumin 5.2 H Globulin 4.6 Albumin/Globulin Ratio 1.1 Lipase 253 Urine Color Yellow Urine Appearance Clear Urine pH 6.0 Ur Specific [place] <= 1.005 Urine Protein Negative Urine Glucose (UA) 500 H Urine Ketones Negative Urine Blood Negative Urine Nitrate Negative Urine Bilirubin Negative Urine Urobilinogen 0.2 Ur Leukocyte Esterase Trace H Urine RBC 0 - 2 Urine WBC 1 - 3 Ur Epithelial Cells 0 - 2 Urine Bacteria Occ Assessment & Plan - Assessment and Plan (Free Text) Assessment: A 58 year old female who came in to the ER due to nausea and vomiting and abdominal pain for the past three days. Denies shortness of breath or chest pain. History of hypertension and diabetes and hypercholesterolemia. Had history of left shoulder pain. She claimed that X ray was done before but negative for fracture and okay. Denies any falls. Cardiac work up done at [facility] [place]. Stress test on 08/07/14 Normal. Echo on 08/07/14 showed LVEF of 65%, trace MR, Grade 1 transmitral flow, Will repeat echo to evaluate LV function. Rule out congestive heart failure. Plan: Denies shortness of breath Denies chest pain Heart rate controlled Blood pressure controlled Will resume home medications Cozaar 100 mg daily, ASA 81 mg Daily Continue current treatment Will order TSH, HgbA1C, lipid profile. Echo to evaluate LV function CT of abdomen pending results Will follow up Plan and treatment discussed with Dr. Cristobal Thank you Dr. Chappell for the opportunity in taking care of Vamshi Cardozazk - Date & Time Date: 11/05/18 Time: 06:30
[2018-11-05] MEDS: Magnesium Oxide 400 mg Tab UD PO SCH ×2 (09:17→17:08)
--- NOTE | 2018-11-05 10:00 | CON ---
DATE: 11/05/2018 REASON FOR CONSULTATION AND FOLLOWUP: Cardiac evaluation, questionable history of congestive heart failure, history of hypertension and rule out CHF. BRIEF CLINICAL HISTORY: This is 58-year-old female history of hypertension, diabetes, hyperlipidemia came with abdominal pain and vomiting. She says that she has get abdominal ballottement off and on. Denies any chest pain. Denies any shortness of breath. Denies any palpitation in the past recently. Previous cardiac workup was negative. The patient had possible Crohn's disease and some abdominal problem not sure what kind of , but she is off and on diarrhea from last 6 years. Denies any chest pain, shortness of breath any palpitation, history of previous cardiac workup in 2013 was essentially negative including stress test and echo. The patient had a stress test dated 08/07/2014 is normal, also the patient echo 08/07/2014, ejection 65, trace MR, trace TR. This note is in addition to dictated by nurse practitioner, Oxana Mohr so far no cardiac symptoms at this time. Denies any chest pain, shortness of breath, any palpitation. RECOMMENDATION: We will get echo to assess LV function. Continue GI workup. CT of the abdomen pending. We will follow with you. Thank you Dr. Chappell for providing us the opportunity in taking care of the patient, Vamshi Monae. We will get lipid profile TSH, hemoglobin A1c as well as echo to assess LV function. So, far no evidence of acute MS, no evidence of ischemia. We will discontinue telemetry. Continue GI workup. Jonyn Cristobal MD
[2018-11-05] MEDS: Sodium Chloride 0.45% 1,000 ML IV SCH (10:19)
[2018-11-05] MEDS: [UNRECOGNIZED DRUG - OTHER] PO SCH (10:19)
[2018-11-05] MEDS: B6 PO SCH (10:19)
[2018-11-05] MEDS: FOLIC ACID PO SCH (10:19)
[2018-11-05] MEDS: VIT B12 PO SCH (10:19)
--- NOTE | 2018-11-05 11:55 | CT ---
Date of service: 11/04/2018 PROCEDURE: CT Abdomen and Pelvis with contrast HISTORY: abd pain, constipation, vomiting COMPARISON: None available. TECHNIQUE: Contrast dose: 100 mL Omnipaque 350 IV Radiation dose: Total exam DLP = 400.26 mGy-cm. This CT exam was performed using one or more of the following dose reduction techniques: Automated exposure control, adjustment of the mA and/or kV according to patient size, and/or use of iterative reconstruction technique. FINDINGS: LOWER THORAX: Prominent interstitial markings; correlate clinically for fibrosis. No visible consolidation, pleural effusion, or pneumothorax. Mild cardiomegaly. LIVER: Hypoattenuation of the liver compatible with hepatic steatosis. GALLBLADDER AND BILE DUCTS: Unremarkable. PANCREAS: Fatty atrophy of the pancreas. SPLEEN: Unremarkable. ADRENALS: Unremarkable. KIDNEYS AND URETERS: The kidneys enhance symmetrically. No hydronephrosis or obstructing calculus identified. VASCULATURE: No aortic aneurysm. Mild atherosclerotic calcifications. BOWEL: Stomach is nondistended. Lack of oral contrast limits evaluation for bowel pathology. Bowel loops appear within normal limits of caliber without evidence of obstruction. Wall thickening of small bowel wall loops ; correlate clinically for possibility of enteritis. APPENDIX: The appendix appears within normal limits of caliber. No secondary signs of acute appendicitis. PERITONEUM: No significant free fluid. No definite free air. LYMPH NODES: No bulky adenopathy identified. BLADDER: Unremarkable. REPRODUCTIVE: Uterus with coarse calcifications presumably related to fibroids. BONES: Degenerative changes. OTHER FINDINGS: Small fat containing umbilical hernia. IMPRESSION: Small bowel wall thickening; correlate clinically for possibility of enteritis. Uterine calcifications presumably related to fibroids. Hypoattenuation of the liver compatible with hepatic steatosis. Prominent interstitial markings; correlate clinically for fibrosis. Mild cardiomegaly. Additional incidental findings as above. Preliminary impression was provided by [employer]
[2018-11-05] MEDS: Insulin Reg-LOW-Coverage SC SCH ×2 (12:07→17:07)
[2018-11-05] MEDS ORDERED: Iohexol 300 100 ML IJ ONE (13:24)
--- NOTE | 2018-11-05 15:04 | CT ---
Date of service: 11/05/2018 PROCEDURE: CT Chest with contrast HISTORY: infiltrate COMPARISON: 11/04/2018 TECHNIQUE: Contiguous axial images were obtained through the chest with intravenous contrast enhancement. Sagittal and coronal reconstructions were performed. IV contrast: 100 cc of Omni 300 Radiation dose: Total exam DLP = 270.17 mGy-cm. This CT exam was performed using one or more of the following dose reduction techniques: Automated exposure control, adjustment of the mA and/or kV according to patient size, and/or use of iterative reconstruction technique. FINDINGS: LUNGS: Clear lungs. Visualized airway clear. The interstitial infiltrate seen previously has resolved. MEDIASTINUM: Unremarkable thoracic aorta. No aneurysm or dissection. Normal sized heart. Main pulmonary artery unremarkable. No vascular congestion. No lymphadenopathy. No aortic atherosclerotic calcification or mural plaque present. PLEURA: No pleural fluid. No pneumothorax. BONES: No fracture. No destructive lesion. UPPER ABDOMEN: Grossly unremarkable. OTHER FINDINGS: None. IMPRESSION: Unremarkable contrast enhanced CT of the chest.
--- NOTE | 2018-11-05 16:28 | CARD ---
APPROVED REPORT Date of service: 11/05/2018 EXAM: Two-dimensional and M-mode echocardiogram with Doppler and color Doppler. INDICATION LVFX 2D DIMENSIONS Left Atrium (2D)3.8 (1.6-4.0cm)IVSd0.9 (0.7-1.1cm) LVDd3.8 (3.9-5.9cm)PWd1.1 (0.7-1.1cm) LVDs2.6 (2.5-4.0cm)FS (%) 32.9 % LVEF (%)62.1 (>50%) M-Mode DIMENSIONS Aortic Root2.90 (2.2-3.7cm)Aortic Cusp Exc.1.60 (1.5-2.0cm) Aortic Valve AoV Peak Ebdlalnv542.0cm/Amelie Peak GR.12mmHg Mitral Valve MV E Ibangpvx02.0cm/sMV A Rvndlaoa816.0cm/sE/A ratio0.8 TDI Lateral E' Peak V5.85cm/sMedial E' Peak V4.78cm/sE/Lateral E'14.9 E/Medial E'18.2 Pulmonary Valve PV Peak Ktcnavbm14.9cm/sPV Peak Grad.2mmHg Tricuspid Valve TR Peak Gumsxmqw854jc/sRAP [id number] Peak Gr.16mmHg [id number] LEFT VENTRICLE The left ventricle is normal size. The left ventricular function is normal. The left ventricular ejection fraction is within the normal range. 62%. Tissue Doppler imaging reveals moderate left ventricular diastolic dysfunction. RIGHT VENTRICLE The right ventricle is normal size. The right ventricular systolic function is normal. ATRIA The left atrium size is normal. The right atrium size is normal. MITRAL VALVE Mitral Valve Leaflets Thickened. Openin g Normal. Mitral regurgitation is mild. TRICUSPID VALVE The tricuspid valve is normal in structure. <Conclusion> The left ventricle is normal size. The left ventricular function is normal. The left ventricular ejection fraction is within the normal range. 62%. Tissue Doppler imaging reveals moderate left ventricular diastolic dysfunction. The right ventricle is normal size. The right ventricular systolic function is normal. The left atrium size is normal. The right atrium size is normal. Mitral Valve Leaflets Thickened. Openin g Normal. Mitral regurgitation is mild. The tricuspid valve is normal in structure. Aortic Valve Opening Normal.
--- NOTE | 2018-11-05 17:31 | CP.PCM.CON ---
History of Present Illness - History of Present Illness History of Present Illness: PGY-4 GI Fellow Consult Note Pt is a 58 yo F with HTN, HLD, DM presenting with complaint of abd pain and N/V. She states for the last 3 days she has had some diffuse abd pain with associated NB/NB emesis. She states also around this time she has ceased bowel movements and has not been passing gas. No clear precipitating or alleviating factors. She states that she often has some loose stools at baseline without signs of bleeding. She denied any sick contacts, recent travel, antibiotic use, raw food consumptions, dysphagia, melena, hematochezia nor weight loss. 12 point ROS negative other than stated above MHx: See above SurgHx: Denied; No prior Endos Meds: Reviewed in chart FamHx: Denied any fam h/o GI probs or cancer SocHx: Denied x3 All: NKDA Past Patient History - Infectious Disease Hx of Infectious Diseases: None - Tetanus Immunizations Tetanus Immunization: Up to Date - Past Social History Smoking Status: Never Smoked - CARDIAC Hx Cardiac Disorders: Yes Hx Angina: No Hx Cardia Arrhythmia: No Hx Circulatory Problems: No Hx Congestive Heart Failure: No Hx Heart Murmur: No Hx Heart Transplant: No Hx Hypercholesterolemia: Yes Hx Hypertension: Yes Hx Internal Defibrillator: No Hx Mitral Valve Prolapse: No Hx Pacemaker: No Hx Peripheral Edema: No Hx Peripheral Vascular Disease: No - PULMONARY Hx Respiratory Disorders: No Hx Asthma: No Hx Bronchitis: No Hx Chronic Obstructive Pulmonary Disease (COPD): No Hx Emphysema: No Hx Pneumonia: No Hx Respiratory Aspiration: No Hx Respiratory Tract Infection: No Hx Sleep Apnea: No Hx Tuberculosis: No - NEUROLOGICAL Hx Neurological Disorder: No Hx Alzheimer's Disease: No HX Cerebrovascular Accident: No Hx Dementia: No Hx Dizziness: No Hx Meningitis: No Hx Migraine: No Hx Parkinson's Disease: No Hx Seizures: No Hx Transient Ischemic Attacks (TIA): No - HEENT Hx HEENT Problems: No Hx Blind: No Hx Cataracts: No Hx Deafness: No Hx Difficulty Chewing: No Hx Epistaxis: No Hx Glaucoma: No Hx Macular Degeneration: No - RENAL Hx Chronic Kidney Disease: No Hx Dialysis: No Hx Kidney Stones: No Hx Neurogenic Bladder: No Hx Pyelonephritis: No Hx Renal (Kidney) Cancer: No Hx Renal Failure: No - ENDOCRINE/METABOLIC Hx Endocrine Disorders: Yes Hx Adrenal Cancer: No Hx Diabetes Insipidus: No Hx Diabetes Mellitus Type 1: No Hx Diabetes Mellitus Type 2: Yes Hx Hyperthyroidism: No Hx Hypothyroidism: No Hx Systemic Lupus Erythematosus: No - HEMATOLOGICAL/ONCOLOGICAL Hx Blood Disorders: No Hx AIDS: No Hx Anemia: No Hx Cancer: No Hx Chemotherapy: No Hx Cirrhosis: No Hx Hemophilia: No Hx Hepatitis A: No Hx Hepatitis B: No Hx Hepatitis C: No Hx Human Immunodeficiency Virus (HIV): No Hx Metastesis: No Hx Shingles: No Hx Sickle Cell Disease: No Hx Unexplained Bleeding: No - INTEGUMENTARY Hx Dermatological Problems: No Hx Basil Cell: No Hx Eczema: No Hx Melanoma: No Hx Psoriasis: No Hx Squamous Cell: No - MUSCULOSKELETAL/RHEUMATOLOGICAL Hx Musculoskeletal Disorders: No Hx Arthritis: No Hx Back Pain: No Hx Degenerative Joint Disease: No Hx Falls: No Hx Fractures: No Hx Gout: No Hx Herniated Disk: No Hx Myasthenia Gravis: No Hx Osteoarthritis: No Hx Osteomyelitis: No Hx Osteoporosis: No Hx Rhabdomyolysis: No Hx Spinal Stenosis: No Hx Unsteady Gait: No - GASTROINTESTINAL Hx Gastrointestinal Disorders: No Hx Colostomy: No Hx Crohn's Disease: No Hx Diverticulitis: No Hx Gall Bladder Disease: No Hx Gastroesophageal Reflux: No Hx Ileostomy: No Hx Liver Failure: No Hx Pancreatitis: No HX Swallowing Problems: No Hx Ulcer: No - GENITOURINARY/GYNECOLOGICAL Hx Genitourinary Disorders: No Hx Hematuria: No Hx Incontinence: No Hx Sexually Transmitted Disorders: No Hx Urinary Tract Infection: No - PSYCHIATRIC Hx Psychophysiologic Disorder: No Hx Anxiety: No Hx Bipolar Disorder: No Hx Depression: No Hx Emotional Abuse: No Hx Hallucinations: No Hx Panic Symptoms: No Hx Paranoia: No Hx Post Traumatic Stress Disorder: No Hx Psychosis: No Hx Physical Abuse: No Hx Schizophrenia: No Hx Sexual Abuse: No Hx Substance Use: No - SURGICAL HISTORY Hx Surgeries: No Hx Amputation: No Hx Appendectomy: No Hx Cardiac Catheterization: No Hx Cholecystectomy: No Hx Coronary Stent: No Hx Gastric Bypass Surgery: No Hx Hysterectomy: No Hx Joint Replacement: No Hx Kidney Transplant: No Hx Liver Transplant: No Hx Mastectomy: No Hx Musculoskeletal Surgery: No Hx Open Heart Surgery: No Hx Orthopedic Surgery: No Hx Splenectomy: No Hx Valve Replacement: No - ANESTHESIA Hx Anesthesia: No Hx Anesthesia Reactions: No Hx Malignant Hyperthermia: No Meds Allergies/Adverse Reactions: Allergies Allergy/AdvReac Type Severity Reaction Status Date / Time No Known Allergies Allergy Verified 07/18/18 18:30 - Medications Medications: Current Medications Aspirin (Ecotrin) 81 mg PO DAILY [facility] Last Admin: 11/05/18 09:17 Dose: 81 mg Atorvastatin Calcium (Lipitor) 20 mg PO DIN [facility] Last Admin: 11/05/18 17:08 Dose: 20 mg Famotidine (Pepcid) 40 mg PO DAILY [facility] Last Admin: 11/05/18 09:17 Dose: 40 mg Sodium Chloride (Sodium Chloride 0.45%) 1,000 mls @ 70 mls/hr IV .[id number] [facility] Last Admin: 11/05/18 10:19 Dose: 70 mls/hr Ciprofloxacin (Cipro 400mg/200ml Dsw) 400 mg in 200 mls @ 133.3 mls/hr IVPB Q12 [facility]; Protocol Stop: 11/05/18 23:31 Metronidazole (Flagyl) 500 mg in 100 mls @ 100 mls/hr IVPB Q8 [facility]; Protocol Insulin Human Regular (Humulin R Low) 0 units SC ACHS [facility]; Protocol Last Admin: 11/05/18 17:07 Dose: Not Given Losartan Potassium (Cozaar) 100 mg PO DAILY [facility] Last Admin: 11/05/18 09:17 Dose: 100 mg Magnesium Oxide (Mag-Ox) 400 mg PO BID [facility] Last Admin: 11/05/18 17:08 Dose: 400 mg Vit B12/Folic Acid/B6/Aa15 [Glycotrol Capsule] (Home) 1 cap PO DAILY [facility] Last Admin: 11/05/18 10:19 Dose: Not Given Ondansetron HCl (Zofran Inj) 4 mg IVP Q4 PRN PRN Reason: Nausea/Vomiting Pantoprazole Sodium (Protonix Inj) 40 mg IVP DAILY [facility] Last Admin: 11/05/18 09:17 Dose: 40 mg Physical Exam - Constitutional Appears: Well, No Acute Distress - Head Exam Head Exam: ATRAUMATIC, NORMAL INSPECTION - Eye Exam Eye Exam: EOMI. absent: Scleral icterus - ENT Exam ENT Exam: Mucous Membranes Moist. absent: Mucous Membranes Dry - Respiratory Exam Respiratory Exam: Clear to Auscultation Bilateral. absent: Accessory Muscle Use, Respiratory Distress, NORMAL BREATHING PATTERN - Cardiovascular Exam Cardiovascular Exam: REGULAR RHYTHM, RRR - GI/Abdominal Exam GI & Abdominal Exam: Distended (mildly), Hypoactive Bowel Sounds, Soft, Tenderness (mildy diffusely ttp w/o guarding). absent: Bruit, Diminished Bowel Sounds, Firm, Guarding, Hernia, Mass, Normal Bowel Sounds, Organomegaly, Pulsatile Mass, Rebound, Rigid - Rectal Exam Rectal Exam: Deferred - Extremities Exam Extremities exam: Positive for: normal inspection. Negative for: pedal edema - Neurological Exam Neurological exam: Alert, CN II-XII Intact - Psychiatric Exam Psychiatric exam: Normal Affect, Normal Mood - Skin Skin Exam: Normal Color, Warm Results - Vital Signs Recent Vital Signs: Last Vital Signs Temp 98.7 F 11/05/18 14:00 Pulse 82 11/05/18 14:00 Resp 18 11/05/18 14:00 BP 155/78 H 11/05/18 14:00 Pulse Ox 98 11/05/18 14:00 - Labs Result Diagrams: 11/04/18 19:00 11/04/18 19:00 Labs: Laboratory Results - last 24 hr 11/04/18 11/04/18 11/04/18 19:00 19:00 21:19 WBC 8.4 RBC 4.94 Hgb 12.9 Hct 39.5 MCV 80.0 MCH 26.1 MCHC 32.7 RDW 13.4 Plt Count 383 MPV 10.4 Gran % 54.4 Lymph % (Auto) 39.1 H Pratt % (Auto) 5.4 Eos % (Auto) 1.1 L Baso % (Auto) 0.0 Gran # 4.56 Lymph # (Auto) 3.3 Pratt # (Auto) 0.5 Eos # (Auto) 0.1 Baso # (Auto) 0.00 Sodium 139 Potassium 4.1 Chloride 102 Carbon Dioxide 24 Anion Gap 17 BUN 21 Creatinine 0.9 Est GFR ( Amer) > 60 Est GFR (Non-Af Amer) > 60 POC Glucose (mg/dL) Random Glucose 109 Calcium 10.8 H Total Bilirubin 0.3 AST 24 ALT 30 Alkaline Phosphatase 80 Total Protein 9.7 H Albumin 5.2 H Globulin 4.6 Albumin/Globulin Ratio 1.1 Lipase 253 Urine Color Yellow Urine Appearance Clear Urine pH 6.0 Ur Specific [place] <= 1.005 Urine Protein Negative Urine Glucose (UA) 500 H Urine Ketones Negative Urine Blood Negative Urine Nitrate Negative Urine Bilirubin Negative Urine Urobilinogen 0.2 Ur Leukocyte Esterase Trace H Urine RBC 0 - 2 Urine WBC 1 - 3 Ur Epithelial Cells 0 - 2 Urine Bacteria Occ 11/05/18 11/05/18 11/05/18 08:07 12:02 16:20 WBC RBC Hgb Hct MCV MCH MCHC RDW Plt Count MPV Gran % Lymph % (Auto) Pratt % (Auto) Eos % (Auto) Baso % (Auto) Gran # Lymph # (Auto) Pratt # (Auto) Eos # (Auto) Baso # (Auto) Sodium Potassium Chloride Carbon Dioxide Anion Gap BUN Creatinine Est GFR ( Amer) Est GFR (Non-Af Amer) POC Glucose (mg/dL) 214 H 136 H 146 H Random Glucose Calcium Total Bilirubin AST ALT Alkaline Phosphatase Total Protein Albumin Globulin Albumin/Globulin Ratio Lipase Urine Color Urine Appearance Urine pH Ur Specific [place] Urine Protein Urine Glucose (UA) Urine Ketones Urine Blood Urine Nitrate Urine Bilirubin Urine Urobilinogen Ur Leukocyte Esterase Urine RBC Urine WBC Ur Epithelial Cells Urine Bacteria Assessment & Plan - Assessment and Plan (Free Text) Assessment: 58 yo F with HTN, DM presenting with abd pain, N/V: # Abd Pain, N/V: Acute over last 3 days; no signs of obstruction on CT but rath er diffuse enteritis, interesting no stool nor flatus reported per patient but rather only emesis. No prior endoscopic evaluation. Plan: - Liquid diet - Cipro + Metronidazole - Supportive care - Hold off on bowel regimen for now - May consider repeat imaging or endoscopy pending course Pt seen and examined with Dr. Kim; please see attestation for further recs/changes.
--- NOTE | 2018-11-05 19:08 | CON ---
DATE: 11/05/2018 PULMONARY CONSULTATION REFERRING PHYSICIAN: Phong Chappell MD REASON FOR CONSULTATION: Chronic changes in the lung parenchyma on abdominal x-ray. HISTORY OF PRESENT ILLNESS: This is a 58-year-old female with past medical history significant for diabetes, hypertension, admitted with abdominal pain and diarrhea. Had a CT of the abdomen done, incidental finding was bilateral lower lobe interstitial changes. She denied any lung disease in the past, denied any cough. No sputum production. No significant shortness of breath. PAST MEDICAL HISTORY: Hypertension, diabetes, history of neuropathy, history of GERD. FAMILY HISTORY: No significant cardiopulmonary disease reported. SOCIAL HISTORY: Never smoked. Denied any alcohol use. ALLERGIES: ALLERGIES ARE NONE KNOWN. MEDICATIONS: She is on Cozaar 100 mg daily, Ecotrin 81 mg daily, insulin coverage, Lipitor 20 mg daily, magnesium oxide 400 mg twice a day, Pepcid 40 mg daily, Protonix 40 mg daily, IV fluid half-normal saline 70 mL/hr, vitamin B with folic acid daily, Zofran p.r.n. basis. REVIEW OF SYSTEMS: No headache, no rhinitis, no cough, no sputum production. Had abdominal pain and diarrhea. No leg pain or leg swelling. PHYSICAL EXAMINATION: GENERAL: In no acute distress. VITAL SIGNS: Temperature is 98, heart rate is 84, respiratory rate is 18, blood pressure 126/72, pulse ox 97% on room air. HEENT: Moist mucous membranes. No ulcer or thrust noted. NECK: Supple. No JVD. LUNGS: Have a few rhonchi, overall fair airflow. HEART: S1 and S2. ABDOMEN: Soft, nontender. No organomegaly. EXTREMITIES: No edema. NEUROLOGIC: Neurologically awake, alert, follows simple commands. LABORATORY DATA: Shows hemoglobin 12.9, hematocrit 39.5, WBC 8.4, platelet is 383. Sodium 131, potassium 4.1, chloride 102, bicarbonate 24, BUN 21, creatinine 0.9, glucose 109, calcium 10.8, AST 24, ALT 30, alk phos is 80. Albumin is 5.2, lipase is 253. Had echocardiogram done, report is still pending. Abdominal and pelvis CT done in ER, which shows small bowel wall thickening, probably enteritis; hepatic attenuation of liver; compatible hepatic steatosis; prominent interstitial markings correlate clinically for fibrosis; mild cardiomegaly. IMPRESSION AND PLAN: Came in with nausea, diarrhea, found to have enteritis, thickening of the small bowel, hypertension, incidentally have abnormal CT of the abdomen with changes in the lower lobe of the lung. We will get full CT of the chest. Waiting for echocardiogram report. We will make further recommendation once we have CT of the chest available. Thank you and we will follow with you. Jonny Osman MD
--- NOTE | 2018-11-05 20:26 | CARD ---
APPROVED REPORT Date of service: 11/04/2018 EKG Measurement Heart [id number] <Conclusion> Normal sinus rhythm Poor R wave progression in Precordial leads Abnormal ECG
[2018-11-05] MEDS ORDERED: Ciprofloxacin 400mg/200ml D5W 400 MG/200 ML BAG IVPB SCH (22:00)
[2018-11-05] MEDS: metroNIDAZOLE IV 500 mg/100 ml 500 MG/100 ML BAG IVPB SCH (22:11)
[2018-11-06] MEDS: Insulin Reg-LOW-Coverage SC SCH ×5 (00:39→22:00)
[2018-11-06] MEDS: metroNIDAZOLE IV 500 mg/100 ml 500 MG/100 ML BAG IVPB SCH ×3 (05:52→21:29)
[2018-11-06 07:54] LABS: HDL CHOLESTEROL 41 mg/dL (29-60)
[2018-11-06 08:05] LABS: LDL CHOLESTEROL 135 mg/dL (0-129)
--- NOTE | 2018-11-06 08:16 | CP.PCM.PN ---
Subjective - Date & Time of Evaluation Date of Evaluation: 11/06/18 Time of Evaluation: 06:50 - Subjective Subjective: Awake, alert , ambulating at bedside Reason for consultation and follow up: Cardiac evaluation for questionable congestive heart failure, history of hypertension, hypercholesterolemia.admitted due to nausea and vomiting and abdominal pain Seen and examined by me and Dr. Tejada Objective - Vital Signs/Intake and Output Vital Signs (last 24 hours): Temp Pulse Resp BP Pulse Ox 98.2 F 74 16 138/71 97 11/05/18 22:00 11/05/18 22:00 11/05/18 22:00 11/05/18 22:00 11/05/18 22:00 Intake and Output: 11/06/18 11/06/18 06:59 18:59 Intake Total 800 Balance 800 - Medications Medications: Current Medications Aspirin (Ecotrin) 81 mg PO DAILY [facility] Last Admin: 11/05/18 09:17 Dose: 81 mg Atorvastatin Calcium (Lipitor) 20 mg PO DIN [facility] Last Admin: 11/05/18 17:08 Dose: 20 mg Famotidine (Pepcid) 40 mg PO DAILY [facility] Last Admin: 11/05/18 09:17 Dose: 40 mg Sodium Chloride (Sodium Chloride 0.45%) 1,000 mls @ 70 mls/hr IV .[id number] [facility] Last Admin: 11/05/18 10:19 Dose: 70 mls/hr Metronidazole (Flagyl) 500 mg in 100 mls @ 100 mls/hr IVPB Q8 [facility]; Protocol Last Admin: 11/06/18 05:52 Dose: 100 mls/hr Insulin Human Regular (Humulin R Low) 0 units SC ACHS [facility]; Protocol Last Admin: 11/06/18 00:39 Dose: Not Given Losartan Potassium (Cozaar) 100 mg PO DAILY [facility] Last Admin: 11/05/18 09:17 Dose: 100 mg Magnesium Oxide (Mag-Ox) 400 mg PO BID [facility] Last Admin: 11/05/18 17:08 Dose: 400 mg Vit B12/Folic Acid/B6/Aa15 [Glycotrol Capsule] (Home) 1 cap PO DAILY [facility] Last Admin: 11/05/18 10:19 Dose: Not Given Ondansetron HCl (Zofran Inj) 4 mg IVP Q4 PRN PRN Reason: Nausea/Vomiting Pantoprazole Sodium (Protonix Inj) 40 mg IVP DAILY [facility] Last Admin: 11/05/18 09:17 Dose: 40 mg - Labs Labs: 11/04/18 19:00 11/04/18 19:00 - Constitutional Appears: Non-toxic, No Acute Distress - Head Exam Head Exam: NORMAL INSPECTION, NORMOCEPHALIC - Eye Exam Eye Exam: Normal appearance Pupil Exam: NORMAL ACCOMODATION - ENT Exam ENT Exam: Mucous Membranes Moist, Normal Exam - Neck Exam Neck Exam: Full ROM, Normal Inspection - Respiratory Exam Respiratory Exam: Clear to Ausculation Bilateral, NORMAL BREATHING PATTERN - Cardiovascular Exam Cardiovascular Exam: +S1, +S2 - GI/Abdominal Exam GI & Abdominal Exam: Soft, Normal Bowel Sounds - Extremities Exam Extremities Exam: Full ROM, Normal Capillary Refill - Neurological Exam Neurological Exam: Alert, Awake, Oriented x3 - Psychiatric Exam Psychiatric exam: Normal Affect, Normal Mood - Skin Skin Exam: Dry, Normal Color, Warm Assessment and Plan - Assessment and Plan (Free Text) Assessment: A 58 year old female who came in to the ER due to nausea and vomiting and abdominal pain for the past three days. Denies shortness of breath or chest pain. History of hypertension and diabetes and hypercholesterolemia. Had history of left shoulder pain. She claimed that X ray was done before but negative for fracture and okay. Denies any falls. Cardiac work up done at [facility] [place]. Stress test on 08/07/14 Normal. Echo on 08/07/14 showed LVEF of 65%, trace MR, Grade 1 transmitral flow, Will repeat echo to evaluate LV function. Rule out congestive heart failure. no evidence of ischemia. CT of abdomen done- small bowel wall thickening possibility of enteritis, uterine calcifications,hepatic steatosis, mild cardiomegaly. Echo done-LVEF 62%, moderate LV diastolic dysfunction, mitral valve leaflets thickened,,mild MR. GI work up in progress. Plan: Echo done-LVEF 62%, moderate LV diastolic dysfunction, mitral valve leaflets thickened,,mild MR Ambulating, Denies shortness of breath,denies chest pain Heart rate controlled Blood pressure controlled Cardiac status stable On Cozaar 100 mg daily, ASA 81 mg Daily, Lipitor 20 mg daily Elevated lipid panel, on Lipitor Continue current treatment GI work up in progress Will follow up Plan and treatment discussed with Dr. Tejada
[2018-11-06] MEDS: Magnesium Oxide 400 mg Tab UD PO SCH ×2 (10:29→17:01)
[2018-11-06] MEDS: B6 PO SCH (10:30)
[2018-11-06] MEDS: VIT B12 PO SCH (10:30)
[2018-11-06] MEDS: [UNRECOGNIZED DRUG - OTHER] PO SCH (10:30)
[2018-11-06] MEDS: FOLIC ACID PO SCH (10:30)
--- NOTE | 2018-11-06 10:47 | PN ---
DATE: 11/06/2018 This visit is for Dr. Kim, Dr. Yang covering. SUBJECTIVE: The patient is lying in bed. She states that her abdominal pain is less but she still gets occasional cramps. She apparently had one episode of vomiting early this morning. She denies any diarrhea. In fact, she has not had a bowel movement for several days. She denies any fevers or chills. OBJECTIVE: VITAL SIGNS: Reveal temperature of 98.8, blood pressure 139/89, heart rate of 82. HEENT: Reveal sclerae to be white. Conjunctivae pink. NECK: Supple. CHEST/LUNGS: Clear. HEART: Reveals regular rate and rhythm. ABDOMEN: Soft. There is mild mid abdominal tenderness. No rebound or guarding. EXTREMITIES: Show no edema. LABORATORY DATA: Reveal no new laboratory data. IMPRESSION: Acute enteritis, clinically improving. RECOMMENDATIONS: Continue clear liquids for now. If her abdominal pain continues to improve, can try a soft bland diet. Cheng Yang MD
--- NOTE | 2018-11-06 17:39 | PN ---
DATE: 11/06/2018 PULMONARY PROGRESS NOTE REFERRING PHYSICIAN: Phong Chappell MD SUBJECTIVE: The patient is lying in bed. No acute distress. No overnight events reported. The patient reports feeling much better today. The patient reports not having any bowel movements. The patient reports abdominal has improved. OBJECTIVE: GENERAL: No acute distress. VITAL SIGNS: Blood pressure 154/81, pulse 97, temperature 98.1 and oxygen saturation 98% on room air. HEENT: Moist mucous membranes. NECK: Supple. No JVD. LUNGS: Fair airflow bilaterally. No audible rhonchi or wheezing. CARDIOVASCULAR: S1 and S2, audible. ABDOMEN: Soft and nontender. No distention. No organomegaly. EXTREMITIES: No bilateral lower extremity edema. NEUROLOGIC: Awake, alert, and verbal. Follow commands. MEDICATIONS: Reviewed. Aspirin 81 mg daily, Lipitor 20 mg at dinner, Pepcid 40 mg daily, Humulin R sliding scale before meals and at bedtime, Cozaar 100 mg daily, magnesium oxide 400 mg twice a day, Flagyl 500 mg every 8 hours, Zofran 4 mg IV push every 4 hours p.r.n., Protonix 40 mg daily and sodium chloride 0.45% at 1000 mL of 70 mL per hour. LABORATORY DATA: Reviewed. POC glucose 102. Echocardiogram shows left ventricular ejection fraction is 62%, RVSP 26, mild mitral regurgitation. Chest CT shows clear lungs, interstitial infiltrate previously has resolved. IMPRESSION AND PLAN: Acute enteritis and hypertension. CT scan of the lungs shows that infiltrates has resolved. Continue followup with Gastroenterology. Continue antibiotic therapy. Gastric prophylaxis. We will place the patient on deep venous thrombosis prophylaxis. This patient was seen and examined by Dr. Osman. Discussed assessment and plan as described above. Thank you for this consult. We will follow with you. Garland Salazar APN Jonny Osman MD
--- NOTE | 2018-11-06 23:03 | PN ---
DATE: 11/06/2018 LOCATION: The patient is in room 570, bed 2. REASON FOR CONSULTATION: The patient has incidental finding on CAT scan of abdomen, interstitial infiltrates on the base with a question of whether the patient has CHF. The patient admitted with abdominal pain and diarrhea, found to have enteritis for which she is being treated. The patient is still getting abdominal pain, but denied any chest pain, shortness of breath, or palpitations. PHYSICAL EXAMINATION: LUNGS: Clear. HEART: S1 and S2. ABDOMEN: Soft. She has great tenderness in the abdomen. EXTREMITIES: There are no edema. ASSESSMENT AND PLAN: The patient had a CAT scan done of the chest, which showed that interstitial infiltrates seen on the previous abdominal CT scan have all resolved. The patient's echocardiogram showed left ventricular ejection fraction normal at 62%, mild mitral regurgitation, so cardiac function is also normal, so there is no evidence of congestive heart failure, so we will continue treatment for enteritis. The patient is also known hypertensive and she is getting intravenous therapy along with aspirin 81 mg daily, metronidazole 500 mg intravenous every 8 hours, atorvastatin 20 mg daily, Protonix 40 mg intravenous daily and we will monitor the cardiac status, which is stable. If she needs any gastrointestinal procedure from cardiac point of view, she can have the procedure done. I will continue to follow with you. Jonny Tejada MD
--- NOTE | 2018-11-07 00:34 | HP ---
DATE OF EXAM: 11/05/2018 MAIN COMPLAINT: Abdominal pain. HISTORY OF PRESENT ILLNESS: This 58-year-old female has been having intermittent abdominal pain for the last few days, which seems getting worse. She did have diarrhea episodes. She still have vomited one time, and she still have nausea. The diarrheas were a few small amount. She still feel colicky, intermittent abdominal pain with loose bowel movement, but less frequent. She has this problem that seems not resolving for the last few days. There is no fever, no blood in the stool, no other complaints. The patient never had any colonoscopy. PAST MEDICAL HISTORY: She does have diabetes type 2, on insulin; hypercholesterolemia. She does have hypertension, and she has diabetic retinopathy. ALLERGIES: NO KNOWN ALLERGY. SOCIAL HISTORY: She lives with her . No smoking. No drinking. FAMILY HISTORY: Noncontributory. MEDICATIONS SHE TAKE AT HOME: She takes multiple medications including metformin 1000 b.i.d., Pepcid 40 mg once a day, Jardiance 25 mg once a day, vitamin B complex, aspirin 81, Zocor 40, Amaryl 4 mg b.i.d., Cozaar 100 p.o. daily, Protonix 20 p.o. daily, mag oxide 400 b.i.d, and alogliptin 25 mg p.o. daily. REVIEW OF SYSTEMS: She does have sometimes tingling and numbness in her lower extremities. She does have sometimes dizziness. She has blurry vision sometimes, shoulder pain and bilateral arm discomfort sometimes; otherwise, rest of review of systems is negative. PHYSICAL EXAMINATION: VITAL SIGNS: Temperature 98.2, heart rate 74, blood pressure 138/71, respirations 16, saturation 97% on room air. HEAD AND NECK: Normal. No JVD. No thyromegaly. CHEST: Clear bilaterally. CARDIAC: First sound and second sound normal. ABDOMEN: Soft. There is mild general tenderness in the upper abdomen, more than lower. Bowel sounds intact. EXTREMITIES: No edema. NEUROLOGIC: Normal. LABORATORY STUDIES: White count 8.4, hemoglobin 12.9, hematocrit 39.5, platelets 383. Chemistry noted for sodium 139, her potassium 4.1, chloride 102, bicarb 24, BUN 21, creatinine 0.9, calcium is elevated at 10.8, her total protein 9.7, and albumin is high 5.2. Her lipase level was normal. The patient also had a CT abdomen and pelvis with oral contrast, which was done due to constipation and vomiting. It shows uterine calcification, small bowel wall thickening, possible enteritis, also prominent interstitial marking in the lungs, clinically suspicious for fibrosis and mild cardiomegaly. IMPRESSION AND PLAN: This is a 58-year-old female with history of diabetes, hypertension. She has been having constipations, nausea; never had a colonoscopy. She also had infrequent bowel movement, constipated, but was a small loose bowel movement, very infrequent in the last few days. We will admit the patient for: 1. Acute gastroenteritis. 2. Possible chronic constipations, which seems getting worsening. The patient will benefit from upper endoscopy; maybe also colonoscopy will be helpful. 3. Diabetes. 4. Acute interstitial lung disease. We will get a CT chest. We will follow up on that. We will continue IV fluid, keep the patient nothing by mouth, Gastroenterology consult, and resume the rest of medications. Continue gastrointestinal and deep venous thrombosis prophylaxis. Phong Chappell MD
[2018-11-07] MEDS: metroNIDAZOLE IV 500 mg/100 ml 500 MG/100 ML BAG IVPB SCH ×3 (05:31→21:56)
--- NOTE | 2018-11-07 07:07 | CP.PCM.PN ---
Subjective - Date & Time of Evaluation Date of Evaluation: 11/07/18 Time of Evaluation: 06:40 - Subjective Subjective: Denies abdominal pain, denies nausea, awake, alert , no distress Reason for consultation and follow up: Cardiac evaluation for questionable congestive heart failure, history of hypertension, hypercholesterolemia. Admitted due to nausea and vomiting and abdominal pain Seen and examined by me and Dr. Tejada Objective - Vital Signs/Intake and Output Vital Signs (last 24 hours): Temp Pulse Resp BP Pulse Ox 97.7 F 77 18 133/83 99 11/07/18 06:00 11/07/18 06:00 11/07/18 06:00 11/07/18 06:00 11/07/18 06:00 Intake and Output: 11/07/18 11/07/18 06:59 18:59 Intake Total 1040 Balance 1040 - Medications Medications: Current Medications Aspirin (Ecotrin) 81 mg PO DAILY [facility] Last Admin: 11/06/18 10:28 Dose: 81 mg Atorvastatin Calcium (Lipitor) 20 mg PO DIN [facility] Last Admin: 11/06/18 17:01 Dose: 20 mg Enoxaparin Sodium (Lovenox) 40 mg SC DAILY [facility]; Protocol Famotidine (Pepcid) 40 mg PO DAILY [facility] Last Admin: 11/06/18 10:29 Dose: 40 mg Sodium Chloride (Sodium Chloride 0.45%) 1,000 mls @ 70 mls/hr IV .[id number] [facility] Last Admin: 11/05/18 10:19 Dose: 70 mls/hr Metronidazole (Flagyl) 500 mg in 100 mls @ 100 mls/hr IVPB Q8 [facility]; Protocol Last Admin: 11/07/18 05:31 Dose: 100 mls/hr Insulin Human Regular (Humulin R Low) 0 units SC ACHS [facility]; Protocol Last Admin: 11/06/18 22:00 Dose: Not Given Losartan Potassium (Cozaar) 100 mg PO DAILY [facility] Last Admin: 11/06/18 10:28 Dose: 100 mg Magnesium Oxide (Mag-Ox) 400 mg PO BID [facility] Last Admin: 11/06/18 17:01 Dose: 400 mg Vit B12/Folic Acid/B6/Aa15 [Glycotrol Capsule] (Home) 1 cap PO DAILY [facility] Last Admin: 11/06/18 10:30 Dose: Not Given Ondansetron HCl (Zofran Inj) 4 mg IVP Q4 PRN PRN Reason: Nausea/Vomiting Pantoprazole Sodium (Protonix Inj) 40 mg IVP DAILY [facility] Last Admin: 11/06/18 10:30 Dose: 40 mg - Labs Labs: 11/04/18 19:00 11/04/18 19:00 - Constitutional Appears: Non-toxic, No Acute Distress - Head Exam Head Exam: NORMAL INSPECTION, NORMOCEPHALIC - Eye Exam Eye Exam: Normal appearance Pupil Exam: NORMAL ACCOMODATION - ENT Exam ENT Exam: Mucous Membranes Moist, Normal Exam - Respiratory Exam Respiratory Exam: Clear to Ausculation Bilateral, NORMAL BREATHING PATTERN - Cardiovascular Exam Cardiovascular Exam: +S1, +S2 - GI/Abdominal Exam GI & Abdominal Exam: Soft, Normal Bowel Sounds - Extremities Exam Extremities Exam: Full ROM, Normal Capillary Refill - Neurological Exam Neurological Exam: Alert, Awake, Oriented x3 - Psychiatric Exam Psychiatric exam: Normal Affect, Normal Mood - Skin Skin Exam: Dry, Normal Color, Warm Assessment and Plan - Assessment and Plan (Free Text) Assessment: A 58 year old female who came in to the ER due to nausea and vomiting and abdominal pain for the past three days. Denies shortness of breath or chest p ain. History of hypertension and diabetes and hypercholesterolemia. Had history of left shoulder pain. She claimed that X ray was done before but negative for fracture and okay. Denies any falls. Cardiac work up done at [facility]. Stress test on 08/07/14 Normal. Echo on 08/07/14 showed LVEF of 65%, trace MR, Grade 1 transmitral flow, Rule out congestive heart failure. no evidence of ischemia. CT of abdomen done- small bowel wall thickening possibility of enteritis, uterine calcifications,hepatic steatosis, mild cardiomegaly. Echo done-LVEF 62%, moderate LV diastolic dysfunction, mitral valve leaflets thickened,,mild MR. GI work up in progress.Possible EGD/colonoscopy. Cleared for procedure with low to moderate risk. Plan: Denies nausea or vomiting Heart rate controlled Blood pressure controlled Cardiac status stable On Cozaar 100 mg daily, ASA 81 mg Daily, Lipitor 20 mg daily Continue current treatment May discharge from cardiac standpoint GI work up in progress For possible EGD/colonoscopy Will follow up Plan and treatment discussed with Dr. Tejada
[2018-11-07] MEDS: Insulin Reg-LOW-Coverage SC SCH ×4 (07:24→21:51)
[2018-11-07] MEDS: Enoxaparin 40 mg Syringe SC SCH (09:39)
[2018-11-07] MEDS: Magnesium Oxide 400 mg Tab UD PO SCH ×2 (09:40→17:26)
[2018-11-07] MEDS: POLYETHYLENE GLYCOL 3350 17 GM/Dose PACKET PO SCH ×2 (09:41→17:26)
[2018-11-07] MEDS: [UNRECOGNIZED DRUG - OTHER] PO SCH (09:42)
[2018-11-07] MEDS: FOLIC ACID PO SCH (09:42)
[2018-11-07] MEDS: VIT B12 PO SCH (09:42)
[2018-11-07] MEDS: B6 PO SCH (09:42)
--- NOTE | 2018-11-07 10:19 | PN ---
DATE: 11/07/2018 PULMONARY PROGRESS NOTE REFERRING PHYSICIAN: Phong Chappell MD SUBJECTIVE: The patient is sitting up in bed. No acute distress. No overnight events reported. The patient reports no bowel movements, but has been passing gas. Reports some abdominal pain, mild. No headache, rhinitis, cough, shortness of breath, chest pain, nausea, vomiting, diarrhea, leg pain or leg swelling reported. OBJECTIVE: GENERAL: No acute distress. VITAL SIGNS: Blood pressure 133/83, pulse 77, temperature 97.7 and oxygen saturation 99% on room air. HEENT: Moist mucous membranes. NECK: Supple. No JVD. LUNGS: Fair airflow bilaterally. CARDIOVASCULAR: S1 and S2, audible. ABDOMEN: Soft and nontender. No distention. No organomegaly. EXTREMITIES: No bilateral lower extremity edema. NEUROLOGIC: Awake, alert, and verbal. Follow commands. MEDICATIONS: Reviewed. Aspirin 81 mg daily, Lipitor 20 mg at dinner, Lovenox 40 mg daily, Pepcid 40 mg daily, Humulin R sliding scale a.c. and at bedtime, Cozaar 100 mg daily, magnesium oxide 400 mg twice a day, Flagyl 500 mg every 8 hours, Zofran 4 mg every 4 hours p.r.n., Protonix 40 mg daily, MiraLax 17 g twice a day and sodium chloride 0.45% 1000 mL at 70 mL per hour. LABORATORY DATA: Reviewed. POC glucose 125. IMPRESSION AND PLAN: Acute enteritis and hypertension. Continue followup with gastroenterology. Continue antibiotic therapy, gastric prophylaxis and deep venous thrombosis prophylaxis. This patient should have full pulmonary function test as outpatient. This patient was seen and examined by Dr. Osman. Discussed assessment and plan as described above. Thank you for this consult. We will follow with you. Garland Salazar APN Jonny Osman MD
--- NOTE | 2018-11-07 11:04 | PN ---
DATE: 11/07/2018 This visit is for Dr. Kim, Dr. Yang covering. SUBJECTIVE: The patient is seen walking around the [place]. She states that she feels better. Abdominal pain is less. She has not had any further nausea or vomiting. She has not had a bowel movement in several days. PHYSICAL EXAMINATION: VITAL SIGNS: Reveal temperature of 97.7, blood pressure 133/83, heart rate of 77. HEENT: Sclerae to be white. Conjunctivae pink. NECK: Supple. CHEST: Lungs are clear. HEART: Regular rate and rhythm. ABDOMEN: Soft, nontender. No mass. EXTREMITIES: Show no edema. LABORATORY DATA: No new laboratory data are available. IMPRESSION: Acute enteritis. RECOMMENDATIONS: We will advance to a soft bland diet. If tolerated, the patient can be discharged home with outpatient followup. Cheng Yang MD
[2018-11-07] MEDS: Sodium Chloride 0.45% 1,000 ML IV SCH (17:28)
--- NOTE | 2018-11-07 21:31 | PN ---
DATE: 11/07/2018 ADDITIONAL PROGRESS NOTE The patient is in room 573, bed 2. The patient was admitted with abdominal pain. Incidental finding on CAT scan of abdomen showed interstitial infiltrates on the base with a question of whether the patient has CHF. A consult was requested. Clinically, the patient does not have CHF. The patient is lying flat in bed without any chest pain, shortness of breath, or palpitation. Lungs are clear. Cardiovascular, S1 and S2. The patient had a CAT scan of the chest, which showed clear lungs. The patient had an echocardiogram, which showed LV ejection fraction of 62%. Mild mitral regurgitation. From cardiac point of view, the patient's cardiac status is stable. The patient's abdominal pain is also improving. The patient any procedure like endoscopy. The patient can go from cardiac point of view as [id number] risk. In the meantime, the patient is improving with her therapy, which includes metronidazole IV 500 mg every 8 hours, atorvastatin 20 mg daily, Protonix 40 mg IV daily. We will continue present therapy and we will follow. Jonny Tejada MD
[2018-11-07 22:35] VITALS: PULSE 81
--- NOTE | 2018-11-07 23:21 | PN ---
DATE: 11/07/2018 SUBJECTIVE: Patient is 58-year-old female. Patient seems to be doing well. She is walking around. She had a bowel movement today, and no blood. No nausea. Her pain is less than before. PHYSICAL EXAMINATION: VITAL SIGNS: As follows. Temperature 97.7, heart rate 77, blood pressure 123/83, respirations 18, sat 99%. HEAD AND NECK: Normal. No JVD. No thyromegaly. CHEST: Clear bilaterally. CARDIAC: First sound and second sound normal. ABDOMEN: Soft, mildly tender, less than before. EXTREMITIES: No edema. NEUROLOGIC: Normal. IMPRESSION: 1. Acute gastroenteritis. We will continue liquid diet. We will followup on the patient's condition. Currently on Flagyl, IV Protonix, IV fluids. We will continue monitor her case. We will see with the GI consult if she needs any esophagogastroduodenoscopy. We will continue to monitor. 2. Diabetes, using insulin. Continue insulin coverage. We will follow up on that. Blood sugar is stable. 3. Hypertension. Continue current blood pressure medications. The patient is doing well and continues to improve. PLAN: We will discuss further with GI team for any endoscopic procedures to be done whether as an inpatient or as outpatient. Phong Chappell MD
[2018-11-08] MEDS: metroNIDAZOLE IV 500 mg/100 ml 500 MG/100 ML BAG IVPB SCH ×2 (05:21→13:58)
--- NOTE | 2018-11-08 06:48 | CP.PCM.PN ---
Subjective - Date & Time of Evaluation Date of Evaluation: 11/08/18 Time of Evaluation: 06:30 - Subjective Subjective: awake, alert , no distress, denies abdominal pain, denies nausea, Reason for consultation and follow up: Cardiac evaluation for questionable congestive heart failure, history of hypertension, hypercholesterolemia. Admitted due to nausea and vomiting and abdominal pain Seen and examined by me and Dr. Cristobal Objective - Vital Signs/Intake and Output Vital Signs (last 24 hours): Temp Pulse Resp BP Pulse Ox 98.3 F 81 18 129/76 98 11/07/18 22:35 11/07/18 22:35 11/07/18 22:35 11/07/18 22:35 11/07/18 22:35 - Medications Medications: Current Medications Aspirin (Ecotrin) 81 mg PO DAILY [facility] Last Admin: 11/07/18 09:39 Dose: 81 mg Atorvastatin Calcium (Lipitor) 20 mg PO DIN [facility] Last Admin: 11/07/18 17:26 Dose: 20 mg Enoxaparin Sodium (Lovenox) 40 mg SC DAILY [facility]; Protocol Last Admin: 11/07/18 09:39 Dose: 40 mg Famotidine (Pepcid) 40 mg PO DAILY [facility] Last Admin: 11/07/18 09:40 Dose: 40 mg Sodium Chloride (Sodium Chloride 0.45%) 1,000 mls @ 70 mls/hr IV .[id number] [facility] Last Admin: 11/07/18 17:28 Dose: 70 mls/hr Metronidazole (Flagyl) 500 mg in 100 mls @ 100 mls/hr IVPB Q8 [facility]; Protocol Last Admin: 11/08/18 05:21 Dose: 100 mls/hr Insulin Human Regular (Humulin R Low) 0 units SC ACHS [facility]; Protocol Last Admin: 11/07/18 21:51 Dose: Not Given Losartan Potassium (Cozaar) 100 mg PO DAILY [facility] Last Admin: 11/07/18 09:39 Dose: 100 mg Magnesium Oxide (Mag-Ox) 400 mg PO BID [facility] Last Admin: 11/07/18 17:26 Dose: 400 mg Vit B12/Folic Acid/B6/Aa15 [Glycotrol Capsule] (Home) 1 cap PO DAILY [facility] Last Admin: 11/07/18 09:42 Dose: Not Given Ondansetron HCl (Zofran Inj) 4 mg IVP Q4 PRN PRN Reason: Nausea/Vomiting Pantoprazole Sodium (Protonix Inj) 40 mg IVP DAILY [facility] Last Admin: 11/07/18 09:40 Dose: 40 mg Polyethylene Glycol (Miralax) 17 gm PO BID [facility] Last Admin: 11/07/18 17:26 Dose: 17 gm - Labs Labs: 11/04/18 19:00 11/04/18 19:00 - Constitutional Appears: Non-toxic, No Acute Distress - Head Exam Head Exam: NORMAL INSPECTION, NORMOCEPHALIC - Eye Exam Eye Exam: Normal appearance Pupil Exam: NORMAL ACCOMODATION - ENT Exam ENT Exam: Mucous Membranes Moist, Normal Exam - Respiratory Exam Respiratory Exam: Clear to Ausculation Bilateral, NORMAL BREATHING PATTERN - Cardiovascular Exam Cardiovascular Exam: +S1, +S2 - GI/Abdominal Exam GI & Abdominal Exam: Soft, Normal Bowel Sounds - Extremities Exam Extremities Exam: Full ROM, Normal Capillary Refill - Neurological Exam Neurological Exam: Alert, Awake, Oriented x3 - Psychiatric Exam Psychiatric exam: Normal Affect, Normal Mood - Skin Skin Exam: Dry, Normal Color, Warm Assessment and Plan - Assessment and Plan (Free Text) Assessment: A 58 year old female who came in to the ER due to nausea and vomiting and abdominal pain for the past three days. Denies shortness of breath or chest pain. History of hypertension and diabetes and hypercholesterolemia. Had history of left shoulder pain. She claimed that X ray was done before but negative for fracture and okay. Denies any falls. Cardiac work up done at [facility]. Stress test on 08/07/14 Normal. Echo on 08/07/14 showed LVEF of 65%, trace MR, Grade 1 transmitral flow, Rule out congestive heart failure. no evidence of ischemia. CT of abdomen done- small bowel wall thickening possibility of enteritis, uterine calcifications,hepatic steatosis, mild cardiomegaly. Echo done-LVEF 62%, moderate LV diastolic dysfunction, mitral valve leaflets thickened,,mild MR. GI work up in progress. Possible EGD/colonoscopy. Cleared for procedure with low to moderate risk. tolerating oral intake with no vomiting. Had bowel movement yesterday. Plan: Wanted to go home, Denies nausea or vomiting, had bowel movement Heart rate controlled Blood pressure controlled Cardiac status stable On Cozaar 100 mg daily, ASA 81 mg Daily, Lipitor 20 mg daily Continue current treatment May discharge from cardiac standpoint GI follow up, possible EGD/colonoscopy outpatient Will follow up Plan and treatment discussed with
[2018-11-08 07:58] VITALS: BP 125/69; RESP 20; TEMP 97.9; O2SAT 100
[2018-11-08 08:06] LABS: BLOOD UREA NITROGEN 19 mg/dL (7-21); CALCIUM 8.6 mg/dL (8.4-10.5); GFR NON-AFRICAN AMERICAN > 60
[2018-11-08] MEDS: Insulin Reg-LOW-Coverage SC SCH ×2 (08:29→11:40)
[2018-11-08] MEDS: Enoxaparin 40 mg Syringe SC SCH (09:09)
[2018-11-08] MEDS: Magnesium Oxide 400 mg Tab UD PO SCH (09:09)
[2018-11-08] MEDS: POLYETHYLENE GLYCOL 3350 17 GM/Dose PACKET PO SCH (09:10)
[2018-11-08] MEDS: Sodium Chloride 0.45% 1,000 ML IV SCH (09:10)
--- NOTE | 2018-11-08 09:20 | PN ---
DATE: 11/06/2018 SUBJECTIVE: Patient doing better today. She still has some abdominal pain intermittently. Nausea is less, but she seems better. PHYSICAL EXAMINATION: VITAL SIGNS: Temperature 98.1, heart rate 73, blood pressure 135/78, respirations 18, oxygen saturation 99%. HEAD AND NECK: Normal. No JVD. No thyromegaly. CHEST: Clear bilateral. CARDIAC: First sound and second sound normal. ABDOMEN: Soft. There is mild general tenderness all over. EXTREMITIES: No edema. NEUROLOGIC: Normal. LABORATORY DATA: Blood sugar running 125 to 200. CURRENT MEDICATIONS: Cozaar 100 mg daily, aspirin 81 mg, Flagyl ____ insulin coverage, Lipitor 20, NovoLog subcu, magnesium oxide b.i.d., MiraLax, Pepcid, Protonix IV, IV fluid and multivitamin and Zofran. Continue current therapy. Follow up clinically. IMPRESSION: 1. Acute gastroenteritis, was seen on the CT of the abdomen. Continue patient on platelets. We will continue intravenous fluids, Protonix intravenous. Follow up with Gastroenterology consults and continue current therapy. 2. Constipation, probably related to gastroenteritis or not eating enough. Patient has constipation. She will benefit from getting a colonoscopy. 3. Diabetes. Continue insulin coverage. 4. Hypertension, still on current medication. PLAN: Continue current medication. Follow up clinically. We will follow up with the GI team. Phong Chappell MD
[2018-11-08] MEDS: B6 PO SCH (12:56)
[2018-11-08] MEDS: FOLIC ACID PO SCH (12:56)
[2018-11-08] MEDS: VIT B12 PO SCH (12:56)
[2018-11-08] MEDS: [UNRECOGNIZED DRUG - OTHER] PO SCH (12:56)
--- NOTE | 2018-11-08 13:52 | CP.PCM.PN ---
Subjective - Date & Time of Evaluation Date of Evaluation: 11/08/18 Time of Evaluation: 08:20 - Subjective Subjective: PGY-4 GI Fellow Prog Note Pt lying in bed, eating breakfast when seen this AM. States she is feeling well w/o and N/V. States she had BM yesterday after ambulating and advancement of diet. Eager for possible DC. 5 point ROS negative other than stated above Objective - Vital Signs/Intake and Output Vital Signs (last 24 hours): Temp Pulse Resp BP Pulse Ox 97.9 F 81 20 125/69 100 11/08/18 06:00 11/08/18 06:00 11/08/18 06:00 11/08/18 06:00 11/08/18 06:00 - Medications Medications: Current Medications Aspirin (Ecotrin) 81 mg PO DAILY [facility] Last Admin: 11/08/18 09:09 Dose: 81 mg Atorvastatin Calcium (Lipitor) 20 mg PO DIN [facility] Last Admin: 11/07/18 17:26 Dose: 20 mg Enoxaparin Sodium (Lovenox) 40 mg SC DAILY [facility]; Protocol Last Admin: 11/08/18 09:09 Dose: 40 mg Famotidine (Pepcid) 40 mg PO DAILY [facility] Last Admin: 11/08/18 09:09 Dose: 40 mg Sodium Chloride (Sodium Chloride 0.45%) 1,000 mls @ 70 mls/hr IV .[id number] [facility] Last Admin: 11/08/18 09:10 Dose: 70 mls/hr Metronidazole (Flagyl) 500 mg in 100 mls @ 100 mls/hr IVPB Q8 [facility]; Protocol Last Admin: 11/08/18 05:21 Dose: 100 mls/hr Insulin Human Regular (Humulin R Low) 0 units SC ACHS [facility]; Protocol Last Admin: 11/08/18 11:40 Dose: 3 unit Losartan Potassium (Cozaar) 100 mg PO DAILY [facility] Last Admin: 11/08/18 09:09 Dose: 100 mg Magnesium Oxide (Mag-Ox) 400 mg PO BID [facility] Last Admin: 11/08/18 09:09 Dose: 400 mg Vit B12/Folic Acid/B6/Aa15 [Glycotrol Capsule] (Home) 1 cap PO DAILY [facility] Last Admin: 11/08/18 12:56 Dose: Not Given Ondansetron HCl (Zofran Inj) 4 mg IVP Q4 PRN PRN Reason: Nausea/Vomiting Pantoprazole Sodium (Protonix Ec Tab) 40 mg PO ACB [facility] Polyethylene Glycol (Miralax) 17 gm PO BID [facility] Last Admin: 11/08/18 09:10 Dose: 17 gm - Labs Labs: 11/04/18 19:00 11/08/18 07:00 - Constitutional Appears: Well, No Acute Distress - Head Exam Head Exam: ATRAUMATIC, NORMAL INSPECTION - Eye Exam Eye Exam: EOMI, Scleral icterus - ENT Exam ENT Exam: Mucous Membranes Moist. absent: Mucous Membranes Dry - Respiratory Exam Respiratory Exam: NORMAL BREATHING PATTERN. absent: Accessory Muscle Use, Respiratory Distress - GI/Abdominal Exam GI & Abdominal Exam: Soft, Normal Bowel Sounds. absent: Bruit, Distended, Firm, Guarding, Rigid, Tenderness, Mass, Organomegaly, Pulsatile Mass Assessment and Plan - Assessment and Plan (Free Text) Assessment: 58 yo F with HTN, DM presenting with abd pain, N/V: # Abd Pain, N/V: Improved. Acute over last 3 days; no signs of obstruction on CT but rather diffuse enteritis, interesting no stool nor flatus reported per patient but rather only emesis. No prior endoscopic evaluation. Plan: PRELIM NOTE; RECS NOT FINAL UNTIL SIGNED AND STAFFED - Adv diet as tolerated - Cipro + Metronidazole x 5-7 day course - Supportive care - OK to DC from GI standpoint Pt seen and examined with Dr. Kim; please see attestation for further recs/changes.
--- NOTE | 2018-11-08 15:02 | PN ---
DATE: 11/08/2018 PULMONARY PROGRESS NOTE REFERRING PHYSICIAN: Phong Chappell MD SUBJECTIVE: The patient is sitting up in bed, in no acute distress, reports feeling well today, reports having bowel movement yesterday. No headache, rhinitis, cough, shortness of breath, chest pain, abdominal pain, nausea, vomiting, diarrhea, leg pain or leg swelling reported. OBJECTIVE: GENERAL: No acute distress. VITAL SIGNS: Blood pressure 125/69, pulse 81, temperature 97.9, oxygen saturation 100% on room air. HEENT: Moist mucous membranes. NECK: Supple. No JVD. LUNGS: Clear bilaterally. CARDIOVASCULAR: S1 and S2 audible. ABDOMEN: Soft and nontender. No distention. No organomegaly. EXTREMITIES: No bilateral lower extremity edema. NEUROLOGIC: Awake, alert, verbal, follows commands. MEDICATIONS: Reviewed. Aspirin 81 mg daily, Lipitor 20 mg at dinner, Lovenox 40 mg subcu daily, Pepcid 40 mg daily, Humulin R sliding scale before meals and at bedtime, Cozaar 100 mg daily, magnesium oxide 400 mg twice a day, Flagyl 500 mg every 8 hours, Zofran 4 mg IV push every 4 hours, Protonix 40 mg before meals, MiraLax 17 g twice a day, sodium chloride 0.45% 1000 mL at 70 mL per hour. LABORATORY DATA: Reviewed. Sodium 139, potassium 4.2, chloride 105, carbon dioxide 22, anion gap 16, BUN 19, creatinine 0.9, GFR greater than 60, random glucose 156, calcium 8.6. Urine culture final report shows lactobacillus species. IMPRESSION AND PLAN: Acute enteritis, hypertension. Upon admission, the patient had abdominal-pelvic CT which showed prominent interstitial markings correlate clinically for fibrosis, however, chest CT done the next day showed clear lungs, the interstitial infiltrate seen previously were resolved. From pulmonary point of view, the patient is stable for discharge. GI followup. The patient should have full PFT as outpatient. This patient was seen and examined with Dr. Osman. Discussed assessment and plan as described above. Thank you for this consult. We will follow with you. Garland Prudence, MATERIALS ANALYST Jonny Osman MD [facility] # [id number]
[2018-11-09] MEDS ORDERED: Pantoprazole 40 mg EC Tab PO SCH (07:30)
--- NOTE | 2018-11-09 08:29 | PN ---
DATE: 11/08/2018 REASON FOR CONSULTATION: Followup cardiac evaluation, questionable history of congestive heart failure, hypertension, and hyperlipidemia. Admitted with nausea, vomiting, and abdominal pain. The patient denies any chest pain, shortness of breath, or any palpitation. Feels stable and wanted to go home. This note is addition to dictated by nurse practitioner, Oxana Mohr. The patient is hemodynamically stable. PERTINENT LABORATORY DATA: Hemoglobin 12.9 and hematocrit 39.5. Today sodium , potassium 4.2, BUN 19, and creatinine 0.9. IMPRESSION AND PLAN: A 58-year-old female with past medical history significant for abdominal pain, hyperlipidemia, diabetes, and hypertension. Admitted with the abdominal pain, so far the patient's echo essentially normal. The patient is for endoscopy and colonoscopy for outpatient. Her CVS status is stable. Once the patient is cleared from gastrointestinal, the patient is okay to be discharged. No further cardiac workup is planned at this time. Thank you for providing us the opportunity in taking care of the patient, Vamshi Monae. Jonny Cristobal MD
== END 2018-11-08 14:32 | disposition home or self-care (01) | DRG 813 ==
LOC: ED 17:39 → ERH 22:58 → 2RNO 23:45 → 5RSO 11-05 10:55
PROVIDERS: ADMIT Internal Medicine; ATTEND Internal Medicine
DX: K52.9 Noninfective gastroenteritis and colitis, unspecified (principal); J84.9 Interstitial pulmonary disease, unspecified; E11.319 Type 2 diabetes mellitus with unspecified diabetic retinopathy without macular edema; E11.40 Type 2 diabetes mellitus with diabetic neuropathy, unspecified; F03.90 Unspecified dementia, unspecified severity, without behavioral disturbance, psychotic disturbance, mood disturbance, and anxiety; I11.0 Hypertensive heart disease with heart failure; I50.9 Heart failure, unspecified; K42.9 Umbilical hernia without obstruction or gangrene; K59.00 Constipation, unspecified; K21.9 Gastro-esophageal reflux disease without esophagitis; K76.0 Fatty (change of) liver, not elsewhere classified; D25.9 Leiomyoma of uterus, unspecified; E78.00 Pure hypercholesterolemia, unspecified; E78.5 Hyperlipidemia, unspecified; Z79.4 Long term (current) use of insulin; Z79.82 Long term (current) use of aspirin; Z79.899 Other long term (current) drug therapy